=== PATIENT | male | born 1950 | race Caucasian/White ===

== ENCOUNTER 2019-10-17 15:41 | Observation (INO) ==
[2019-10-17] MEDS ORDERED: ONDANSETRON INJ 2 MG/ML 2 ML VIAL IV STA (16:37)
[2019-10-17] MEDS ORDERED: MoRPHine SULFATE 4 MG/ML 1 ML CARP\\VIAL IV STA (16:37)
--- NOTE | 2019-10-17 16:40 | Emergency Department Note ---
Impression & Plan Pulmonary embolism, Deep vein thrombosis (DVT) of left lower extremity ED Provider Note NAME: MAYE ARCE AGE: 69 SEX: M : 1950 ARRIVES VIA: Walk-In INFORMANT: Patient ED PROVIDER(S): Dioni Trejo DO CHIEF COMPLAINT: Extensive left lower extremity clot HPI: Patient is a 69-year-old male who presents the ER for swelling in his left lower extremity which he noticed Sunday. He notes in retrospect about 2 months ago resource manager recommended him applying some compression stockings and she noted some swelling. He went for 4-hour bike ride on Sunday on his motorcycle. Swelling significantly worsened. Since then patient has been having pain in the left calf. Describes as a sharp stabbing. 10 out of 10. Worse with movement. Denies any chest pain or shortness of breath. No nausea vomiting or diarrhea. No other exacerbating or remitting factors. He notes that his leg does feel so tight as though he cannot move it. He denies any weakness though. ROS: See above HPI for pertinent positives & negatives. A total of 10 systems reviewed and were otherwise negative. PAST MEDICAL HISTORY:See Below PAST SURGICAL HISTORY:See Below FAMILY HISTORY:See Below SOCIAL HISTORY:See Below HOME MEDICATIONS:See Below ALLERGIES:See Below VITALS:See Below PHYSICAL EXAMINATION: GENERAL: Sitting up in bed, alert, well appearing, well nourished, no distress, non-toxic EYE EXAM: normal conjunctiva. OROPHARYNX: no exudate, no erythema, lips, buccal mucosa, and tongue normal and mucous membranes are moist NECK: supple, no nuchal rigidity, no adenopathy, non-tender LUNGS: Clear to auscultation. Normal chest wall mechanics HEART: no murmurs, S1 normal and S2 normal ABDOMEN: abdomen soft, non-tender, normo-active bowel sounds, no masses, no rebound or guarding. SKIN: no rashes and no bruising UPPER EXTREMITIES: upper extremities are grossly normal. LOWER EXTREMITIES: No pitting edema. Left calf significantly larger than right. Left thigh larger than right. DP 2 out of 4. Mild pitting edema. Good sensation intact. NEURO EXAM: Normal sensorium, cranial nerves II-XII grossly intact, normal speech, no gross weakness of arms, no gross weakness of legs. MEDICAL DECISION MAKING: Patient is a 69-year-old male who presents the ER for DVT in his left lower extremity which is fairly extensive. I reviewed the results. Pulse ox was 91 to 92%. He denied any chest pain or shortness of breath. Recommended CT angios which she was agreeable to. IV was established blood work was obtained. Labs show a mild leukocytosis of 10,000. No significant anemia. INR unremarkable. BMP along with LFTs bilirubin and troponin was negative. Lipase was unremarkable. CT [place] of the chest shows extensive bilateral PEs. Discussed bleeding risk factors with the patient. He did recently just have a cataract surgery was. Discussed with Dr. Rae from ophthalmology. He notes that anticoagulation is okay at this point. He was given a bolus of heparin and a drip of heparin. He was admitted to the hospital. Triage Nursing notes reviewed. Prior medical records reviewed Vital Signs: reviewed and remarkable for hypertensive Differential diagnosis: DVT, musculoskeletal, infection, joint effusion, trauma, lymphedema, idiopathic, CHF, as well as other pathologies. ER treatment provided: See below Diagnostics interpreted by me: ECG: Sinus rhythm 88 normal axis No PVCs T wave flattening in aVL Normal QTC Cardiac Monitoring: An order was placed for continuous cardiac monitoring. The monitor shows a rate of 85 with sinus rhythm. Laboratory studies: As stated above and show below. Imaging studies: CT of the chest shows extensive bilateral PEs. Consultation(s): Discussed with the hospitalist for admission Discussed with ophthalmology Dr. Rae in regards to anticoagulation with recent cataract surgery. ED COURSE: Procedures: none Critical Care: I have personally spent 45 minutes of critical care time in the direct managem ent of this patient. This includes bedside care, interpretation of diagnostic studies, and testing, discussion with consultants, patient, and family members, and other required patient management activities. This 45 minutes is in excess of all separately billable procedures. Past Med/Surg History Medical History (Updated 10/17/19 @ 23:04 by Dioni Trejo DO) H/O: HTN (hypertension) Surgical History (Updated 10/17/19 @ 19:45 by Mikey Cook MD) H/O umbilical hernia repair S/P cataract surgery Family History (Updated 10/17/19 @ 19:44 by Mikey Cook MD) Father Cancer prostate Social History (Updated 10/17/19 @ 19:45 by Mikey Cook MD) Smoking Status: Never smoker Smoking End Date: Quit smoking in 1974; Hx Alcohol Use: Yes Alcohol type: beer Hx Substance Use: No Preferred Language: [place] Communication Ability: Effective Podopediatrician Required: No Beliefs That Will Affect Care: None marital status: Current Living Situation: Spouse Feels Safe at Home: Yes Safety Concerns: Feels Safe At This Time Allergies Allergies Allergy/AdvReac Type Severity Reaction Status Date / Time No Known Allergies Allergy Unverified 10/17/19 17:19 Home Meds Home Medications Medication Instructions Recorded Confirmed zwwuzhw-imjbpttoofwut-zxanjgfk 2 tab PO Q8 PRN 10/17/19 10/17/19 [Excedrin Extra Strength] fluocinonide 1 applic TOPICAL BID 10/17/19 10/17/19 indomethacin 25 mg PO UD PRN 10/17/19 10/17/19 ofloxacin [Ocuflox] 1 drp OPR QID 10/17/19 10/17/19 prednisolone acetate [Pred Forte] 1 drp OPR QID 10/17/19 10/17/19 valsartan-hydrochlorothiazide 1 tab PO DAILY 10/17/19 10/17/19 [Diovan HCT] Results & Data (ED) Vital Signs Vital Signs - 24 hr 10/17/19 15:45 10/17/19 16:57 10/17/19 16:59 Temperature 37.4 C Temperature Source Oral Pulse Rate 66 Pulse Rate [Apical] 89 Pulse Rate from SpO2 Sensor Pulse Rhythm [Apical] Regular Pulse Strength [Apical] Normal Respiratory Rate 18 18 Respiratory Effort / Characteristics Non-Labored Spontaneous Respiratory Depth Normal Respiratory Pattern Regular Blood Pressure 151/88 H Blood Pressure [Right Arm] 145/81 H Blood Pressure Mean 109 Blood Pressure Mean [Right Arm] 102 Blood Pressure Position [Right Arm] Sitting Pulse Oximetry 92 100 100 Oxygen Delivery Method Room Air Room Air Room Air Sepsis Recent Fever Within 48 Hours No Sepsis New/Unexplained Change in Mental Status No Sepsis Action Taken by Nursing No Action Required 10/17/19 17:00 10/17/19 17:30 10/17/19 18:00 Temperature Temperature Source Pulse Rate 81 83 79 Pulse Rate [Apical] Pulse Rate from SpO2 Sensor 78 Pulse Rhythm [Apical] Pulse Strength [Apical] Respiratory Rate 24 19 19 Respiratory Effort / Characteristics Respiratory Depth Respiratory Pattern Blood Pressure 138/80 156/89 H 148/83 H Blood Pressure [Right Arm] Blood Pressure Mean 96 97 108 Blood Pressure Mean [Right Arm] Blood Pressure Position [Right Arm] Pulse Oximetry 99 99 Oxygen Delivery Method Room Air Room Air Sepsis Recent Fever Within 48 Hours Sepsis New/Unexplained Change in Mental Status Sepsis Action Taken by Nursing 10/17/19 18:30 10/17/19 19:00 Temperature Temperature Source Pulse Rate 76 75 Pulse Rate [Apical] Pulse Rate from SpO2 Sensor 77 76 Pulse Rhythm [Apical] Pulse Strength [Apical] Respiratory Rate 16 22 Respiratory Effort / Characteristics Respiratory Depth Respiratory Pattern Blood Pressure 151/89 H 164/94 H Blood Pressure [Right Arm] Blood Pressure Mean 116 109 Blood Pressure Mean [Right Arm] Blood Pressure Position [Right Arm] Pulse Oximetry 96 99 Oxygen Delivery Method Room Air Sepsis Recent Fever Within 48 Hours Sepsis New/Unexplained Change in Mental Status Sepsis Action Taken by Nursing Laboratory Data Result diagrams: 10/17/19 16:50 10/17/19 16:50 Lab Results 10/17/19 10/17/19 10/17/19 Range/Units 16:50 16:50 16:50 WBC 10.86 H (4.8-10.8) K/uL RBC 4.87 (4.7-6.1) M/uL Hgb 15.2 (14.0-18.0) g/dL Hct 43.7 (42-52) % MCV 89.7 (80-100) fL MCH 31.2 (25-34) pg MCHC 34.8 (32-36) g/dL RDW Std Deviation 43.1 (36.4-46.3) fL RDW Coeff of [place] 13.1 (11.5-14.5) % Plt Count 225 (130-400) K/uL MPV 9.8 (7.4-10.4) fL Immature Gran % (Auto) 0.2 % Neut % (Auto) 78.3 % Lymph % (Auto) 7.6 % [place] % (Auto) 13.0 % Eos % (Auto) 0.8 % Baso % (Auto) 0.1 % Neut # (Auto) 8.51 H (1.4-6.5) K/uL Lymph # (Auto) 0.82 L (1.2-3.4) K/uL [place] # (Auto) 1.41 H (0.11-0.59) K/uL Eos # (Auto) 0.09 (0-0.5) K/uL Baso # (Auto) 0.01 (0-0.2) K/uL Immature Gran # (Auto) 0.02 (0.00-0.02) K/uL PT 11.3 (9.0-12.0) Seconds INR 1.1 (0.9-1.1) APTT 28.2 (21.0-31.0) Seconds PTT Ratio 1.0 Sodium 139 (136-145) mmol/L Potassium 4.0 (3.5-5.1) mmol/L Chloride 107 (98-107) mmol/L Carbon Dioxide 28 (21-32) mmol/L Anion Gap 4.0 (3-11) BUN 25 H (7-18) mg/dl Creatinine 1.10 (0.6-1.4) mg/dl Est Cr Clr Drug Dosing 85.9 ml/min Est GFR ( Amer) 78.4 Est GFR (Non-Af Amer) 67.7 BUN/Creatinine Ratio 22.6 H (10-20) Glucose 124 H (70-99) mg/dl Calcium 9.0 (8.5-10.1) mg/dl Total Bilirubin 1.6 H (0.2-1) mg/dl AST 63 H (15-37) U/L ALT 70 (12-78) U/L Alkaline Phosphatase 108 (45-117) U/L Troponin I < 0.015 (0-0.045) ng/ml Total Protein 8.1 (6.4-8.2) gm/dl Albumin 3.3 L (3.4-5.0) gm/dl Globulin 4.8 H (2.5-4.0) gm/dl Albumin/Globulin Ratio 0.7 L (0.9-2) Lipase 74 (73-393) U/L Administered Medications Acetaminophen (Tylenol) 650 mg PO Q4H PRN PRN Reason: Pain or Fever Stop: 11/16/19 19:09 Last Admin: 10/17/19 21:06 Dose: 650 mg Documented by: [id number] Heparin Sodium/Dextrose (Heparin Sodium/Dextrose) 25,000 units in 500 mls @ 35 mls/hr IV .[id number] [facility]; Protocol Stop: 11/16/19 18:14 Last Titration: 07/31/20 21:07 Dose: 1,750 units/hr, 35 mls/hr Documented by: [id number] Cosigned by: [id number] Admin: 10/17/19 19:23 Dose: 1,750 units/hr, 35 mls/hr Documented by: [id number] Cosigned by: [id number] Ofloxacin (Ocuflox 0.3%) 1 drops OPR QID JONELLE Stop: 10/27/19 20:59 Last Admin: 10/17/19 21:14 Dose: 1 drops Documented by: [id number] Prednisolone Acetate (Pred Forte 1%) 1 drops OPR QID JONELLE Stop: 11/16/19 20:59 Last Admin: 10/17/19 21:14 Dose: 1 drops Documented by: [id number] Discontinued Medications Heparin Sodium (Porcine) (Heparin Iv Bolus) Confirm Administered Dose 10,000 units .ROUTE .STK-MED ONE Stop: 10/17/19 19:01 Last Admin: 10/17/19 19:24 Dose: 5,000 units Documented by: [id number] Cosigned by: [id number] Heparin Sodium/Dextrose () 1 ea IV NOW STA; Protocol Stop: 10/17/19 18:05 Last Admin: 10/17/19 19:25 Dose: Not Given Documented by: [id number] Ioversol (Optiray 320 125ml) 119 ml IV ONCE ONE Stop: 10/17/19 17:53 Last Admin: 10/17/19 17:52 Dose: 119 ml Documented by: [id number] Morphine Sulfate (Morphine Sulfate) 4 mg IV NOW STA Stop: 10/17/19 16:38 Last Admin: 10/17/19 19:25 Dose: Not Given Documented by: [id number] Morphine Sulfate (Morphine Sulfate) 2 mg IV Q30M PRN PRN Reason: Chest Pain Stop: 10/31/19 19:09 Last Admin: 10/17/19 21:14 Dose: 2 mg Documented by: [id number] Ondansetron HCl (Zofran) 4 mg IV NOW STA Stop: 10/17/19 16:38 Last Admin: 10/17/19 19:25 Dose: Not Given Documented by: [id number] Discharge Plan Visit Data *Final* Discharge Date/Time: 10/17/19 20:03 Chief Complaint: Leg Injury/Pain Stated Complaint: DVT IN LEFT LEG ED Provider: Dioni Trejo Discharge Problem: Pulmonary embolism, Deep vein thrombosis (DVT) of left lower extremity Patient Disposition: Admitted As Inpatient Discharge Instructions Interventions: ED Discharge Assessment Last Done: 10/17/19 20:03 Discharge Problem: Pulmonary embolism Qualifiers: Pulmonary embolism type: unspecified Chronicity: acute Acute cor pulmonale presence: unspecified Qualified Code(s): I26.99 - Other pulmonary embolism without acute cor pulmonale Deep vein thrombosis (DVT) of left lower extremity Qualifiers: Affected thrombotic vein of extremity: unspecified vein of extremity Chronicity: acute Qualified Code(s): I82.402 - Acute embolism and thrombosis of unspecified deep veins of left lower extremity
--- NOTE | 2019-10-17 16:56 | XRay Report ---
XR chest 1V portable CLINICAL HISTORY: Atypical chest pain COMPARISON STUDY: No previous studies for comparison. FINDINGS: The heart is at the upper limits of normal in size. There is no failure. There is no focal pulmonary consolidation. There are no pleural effusions.[ IMPRESSION: No active disease in the chest. ACT 112: Negative or not required by law. Electronically signed by: Nicola Arenas M.D. 10/17/2019 4:54 PM
[2019-10-17 17:03] LABS: Basophils # (auto) 0.01 K/uL (0-0.2); Basophils % (auto) 0.1 %; Eosinophils # (auto) 0.09 K/uL (0-0.5); Eosinophils % (auto) 0.8 %; Hematocrit (blood only) 43.7 % (42-52); Hemoglobin 15.2 g/dL (14.0-18.0); Immature Granulocytes # (auto) 0.02 K/uL (0.00-0.02); Immature Granulocytes % (auto) 0.2 %; Lymphocytes # (auto) 0.82 K/uL (1.2-3.4); Lymphocytes % (auto) 7.6 %; Mean Corpuscular Hemoglobin 31.2 pg (25-34); Mean Corpuscular Hgb Conc 34.8 g/dL (32-36); Mean Corpuscular Volume 89.7 fL (80-100); Mean Platelet Volume 9.8 fL (7.4-10.4); Monocytes # (auto) 1.41 K/uL (0.11-0.59); Neutrophils # (auto) 8.51 K/uL (1.4-6.5); Neutrophils % (auto) 78.3 %; Platelet Count 225 K/uL (130-400); RDW Coefficient of Variation 13.1 % (11.5-14.5); RDW Standard Deviation 43.1 fL (36.4-46.3); Red Blood Count 4.87 M/uL (4.7-6.1); White Blood Count 10.86 K/uL (4.8-10.8)
[2019-10-17 17:15] LABS: INR 1.1 (0.9-1.1); Partial Thromboplastin Time 28.2 Seconds (21.0-31.0); Prothrombin Time 11.3 Seconds (9.0-12.0)
[2019-10-17 17:26] LABS: Alanine Aminotransferase 70 U/L (12-78); Albumin Level 3.3 gm/dl (3.4-5.0); Aspartate Aminotransferase 63 U/L (15-37); BUN Creatinine Ratio 22.6 (10-20); Blood Urea Nitrogen 25 mg/dl (7-18); Carbon Dioxide 28 mmol/L (21-32); Chloride 107 mmol/L (98-107); Creatinine Clr Calc Pharmacy 85.9 ml/min; Est GFR (African American) 78.4; Est GFR (Non-African American) 67.7; Glucose 124 mg/dl (70-99); Lipase 74 U/L (73-393); Sodium 139 mmol/L (136-145)
[2019-10-17 17:31] LABS: Albumin Globulin Ratio 0.7 (0.9-2); Alkaline Phosphatase 108 U/L (45-117); Bilirubin,Total 1.6 mg/dl (0.2-1); Globulin 4.8 gm/dl (2.5-4.0); Total Protein 8.1 gm/dl (6.4-8.2); Troponin I < 0.015 ng/ml (0-0.045)
[2019-10-17] MEDS ORDERED: OPTIRAY 320 125ml IV ONE (17:52)
--- NOTE | 2019-10-17 18:00 | CT Scan Report ---
CT ANGIOGRAM OF THE CHEST CLINICAL HISTORY: Chest pain and DVT. Possible pulmonary embolism. Hypoxia. COMPARISON STUDY: Chest x-ray dated 10/17/2019 TECHNIQUE: Following the IV administration of 119 mL of Optiray-320, CT angiogram of the thorax was p erformed from the thoracic inlet to the lung bases utilizing the pulmonary embolus protocol. Images a re reviewed in the axial, sagittal, and coronal planes. IV contrast was administered without complica tion. MIP imaging was performed. A dose lowering technique was utilized adhering to the principles o f ALARA. There is mild hepatic steatosis. CT DOSE: 771.07 mGy.cm FINDINGS: No pathologically enlarged axillary mediastinal or hilar lymph nodes were visualized. There was no evidence of thoracic aortic dilatation. There are right upper lobe and right lower lobe pulmonary artery filling defects indicative of acute pulmonary embolism. There is slight flattening of the interventricular septum. Mild right ventricular strain cannot be excluded No pleural effusions are visualized. There is no focal pulmonary consolidation. IMPRESSION: 1. Moderate right lung pulmonary artery filling defects indicative of acute pulmonary embolism 2. Slight flattening of the interventricular septum. Mild right ventricular strain cannot be excluded 3. Hepatic steatosis ACT 112: Negative or not required by law. Electronically signed by: Nicola Arenas M.D. 10/17/2019 5:59 PM
[2019-10-17] MEDS ORDERED: HEPARIN SOD (PORCINE) 1000 UNIT/ML 10 ML VIAL ONE (19:00)
[2019-10-17] MEDS ORDERED: MoRPHine SULFATE 2 MG/ML CARP IV PRN ×2 (19:10→21:41)
[2019-10-17] MEDS ORDERED: POLYETHYLENE (MIRALAX) 17 GM PACK PO PRN (19:10)
[2019-10-17] MEDS ORDERED: ACETAMINOPHEN 325 MG TAB PO PRN (19:10)
[2019-10-17] MEDS: HEPARIN SODIUM/DEXTROSE 25,000 UNITS/500 ML BAG IV SCH (19:23)
--- NOTE | 2019-10-17 19:31 | History & Physical Report ---
Date of Service October 17, 2019 Assessment & Plan (1) Pulmonary embolism: (2) Deep vein thrombosis (DVT) of left lower extremity: -admit to telemetry and closely monitor vitals -Mild right ventricular strain cannot be excluded -ED provider confirmed with opthalmologist, that it was okay to start IV heparin (status post cataract surgery on Sunday) -IV heparin ordered in ED, cont. likely for next 48 hrs -Before discharge plan for p.o. anticoagulant, Coumadin or NOACs, given his normal renal function and BMI of 32, can consider NOAC -Hypercoagulable labs ordered even though does not seem likely to be due to genetic disorder (3) H/O: HTN (hypertension): Patient have history of hypertension, did not use his diuretic for past 3 days, will continue to hold -Continue monitor vitals closely Status post right eye cataract surgery -Continue eyedrops, ofloxacin, prednisolone, 4 times daily CODE STATUS: FULL Dispo: likely home when medically stable History of Present Illness Chief Complaint: Left lower extremity swelling and pain, left lower extremity DVT, PE Primary Care Provider: Phillip Singleton MD Mr. Vences is a 69-year-old male with history of hypertension, and recent cataract surgery, who has been having lower extremity edema due to venous insufficiency for some time, however since Sunday his left lower extremity became significantly more swollen and painful. Patient was on a long motorcycle ride, for several hours, and when he came back home, he noticed left lower extremity was significantly swollen and painful. Patient is only on diuretic for his high blood pressure, however has not been taking it for couple of days now because his blood pressures been on the lower side at home. He also confirms that he has not been drinking much fluids and being outside in hot weather. He went to see his primary care doctor today, who ordered left lower extremity Doppler. Says that came positive for significant left lower extremity DVT, he was advised to present himself to the emergency room. In ED, CT was performed, and showed right pulmonary embolism. Patient never had any shortness of breath, dizziness, chest pain, lightheadedness. He only complains of pain with walking. He does not have any other history of previous DVTs or PEs denies any history of clotting issues within his family. As far as he knows, he has no prior history of cancer, and he has been compliant with his regular cancer screenings. He states that he was actually supposed to have screening colonoscopy on Sunday, which he has to cancel now. Patient also had cataract surgery on Sunday, of his right eye, and currently is on eyedrops, ofloxacin and prednisolone. He is supposed to use these 4 times a day. Patient's is currently at the bedside, and has his eyedrops present at the bedside. Allergies Allergy/AdvReac Type Severity Reaction Status Date / Time No Known Allergies Allergy Unverified 10/17/19 17:19 Home Medications Home Medications Medication Instructions Recorded Confirmed Type zjhdpkt-oyqqirpxnftrr-umskwcrb 2 tab PO Q8 PRN 10/17/19 10/17/19 History [Excedrin Extra Strength] fluocinonide 1 applic TOPICAL BID 10/17/19 10/17/19 History indomethacin 25 mg PO UD PRN 10/17/19 10/17/19 History ofloxacin [Ocuflox] 1 drp OPR QID 10/17/19 10/17/19 History prednisolone acetate [Pred Forte] 1 drp OPR QID 10/17/19 10/17/19 History valsartan-hydrochlorothiazide 1 tab PO DAILY 10/17/19 10/17/19 History [Diovan HCT] Past Med/Surg History Medical History (Updated 10/17/19 @ 19:34 by Mikey Cook MD) H/O: HTN (hypertension) Surgical History (Updated 10/17/19 @ 19:45 by Mikey Cook MD) H/O umbilical hernia repair S/P cataract surgery Family History (Updated 10/17/19 @ 19:44 by Mikey Cook MD) Father Cancer prostate Social History (Updated 10/17/19 @ 19:45 by Mikey Cook MD) Smoking Status: Former smoker Smoking End Date: Quit smoking in 1974; Hx Alcohol Use: Yes (2-4 times a month) marital status: Feels Safe at Home: Yes Review of Systems Review of Systems: All systems reviewed & are unremarkable except as noted in HPI & below Constitutional: no fever and no chills Eyes: Mild right eye pain, status post recent cataract surgery Ear, Nose, Mouth, Throat: no problem reported Respiratory: no cough, no dyspnea and no pain on inspiration Cardiovascular: + edema (LLE) and + calf pain (LLE); no chest pain and no palpitations Gastrointestinal: no abdominal pain, no nausea and no vomiting Genitourinary: no problem reported Musculoskeletal: LLE pain, and edema Integumentary: no problem reported Neurologic: no problem reported Psychiatric: no problem reported Endocrine: no problem reported Hematologic / Lymphatic: no problem reported Allergy / Immunological: no problem reported Physical Exam Physical Exam: Elderly male laying in bed, in no acute distress Constitutional: WD/WN, vitals as above no acute distress Eyes: Mild right conjunctivitis, status post recent cataract surgery, otherwise no other abnormality ENMT: external ear and nose normal, oropharynx normal Neck: trachea midline, no thyromegaly Respiratory: normal respiratory effort, lungs clear to auscultation no cough Auscultation: no crackles, no rhonchi and no wheezes Cardiovascular: RRR, no murmur, no edema Chest (Breasts): Chest: normal inspection of chest Gastrointestinal (Abdomen): Inspection/Auscultation: abdomen normal to inspection and normal bowel sounds; abdomen not distended Percussion/P alpation: abdomen soft; abdomen nontender, no guarding and abdomen not rigid Musculoskeletal: Head/Neck/Chest: normocephalic, head atraumatic and neck supple Left lower extremity edema and pain with movement or palpation Skin: no rashes, warm and dry no lesions Neurologic: PERRL, EOMI, accommodation nl, no face palsy, no dysarthria moves all extremities Speech / Cognition: normal speech Motor/Sensory: no tremor Psychiatric: A+Ox3, euthymic affect Genitourinary: Deferred Lymphatic: no lymphadenopathy Results & Data Results & Data ([facility]) Vital Signs (Past 12 Hours) Vital Signs Temp Pulse Pulse Resp BP BP Pulse Ox 10/17/19 18:30 76 16 151/89 H 96 10/17/19 18:00 79 19 148/83 H 99 10/17/19 17:30 83 19 156/89 H 10/17/19 17:00 81 24 138/80 99 10/17/19 16:59 100 10/17/19 16:57 89 18 145/81 H 100 10/17/19 15:45 37.4 C 66 18 151/88 H 92 Laboratory Results 10/17/19 10/17/19 10/17/19 Range/Units 16:50 16:50 16:50 WBC 10.86 H (4.8-10.8) K/uL RBC 4.87 (4.7-6.1) M/uL Hgb 15.2 (14.0-18.0) g/dL Hct 43.7 (42-52) % MCV 89.7 (80-100) fL MCH 31.2 (25-34) pg MCHC 34.8 (32-36) g/dL RDW Std Deviation 43.1 (36.4-46.3) fL RDW Coeff of [place] 13.1 (11.5-14.5) % Plt Count 225 (130-400) K/uL MPV 9.8 (7.4-10.4) fL Immature Gran % (Auto) 0.2 % Neut % (Auto) 78.3 % Lymph % (Auto) 7.6 % [place] % (Auto) 13.0 % Eos % (Auto) 0.8 % Baso % (Auto) 0.1 % Neut # (Auto) 8.51 H (1.4-6.5) K/uL Lymph # (Auto) 0.82 L (1.2-3.4) K/uL [place] # (Auto) 1.41 H (0.11-0.59) K/uL Eos # (Auto) 0.09 (0-0.5) K/uL Baso # (Auto) 0.01 (0-0.2) K/uL Immature Gran # (Auto) 0.02 (0.00-0.02) K/uL PT 11.3 (9.0-12.0) Seconds INR 1.1 (0.9-1.1) APTT 28.2 (21.0-31.0) Seconds PTT Ratio 1.0 Sodium 139 (136-145) mmol/L Potassium 4.0 (3.5-5.1) mmol/L Chloride 107 (98-107) mmol/L Carbon Dioxide 28 (21-32) mmol/L Anion Gap 4.0 (3-11) BUN 25 H (7-18) mg/dl Creatinine 1.10 (0.6-1.4) mg/dl Est Cr Clr Drug Dosing 85.9 ml/min Est GFR ( Amer) 78.4 Est GFR (Non-Af Amer) 67.7 BUN/Creatinine Ratio 22.6 H (10-20) Glucose 124 H (70-99) mg/dl Calcium 9.0 (8.5-10.1) mg/dl Total Bilirubin 1.6 H (0.2-1) mg/dl AST 63 H (15-37) U/L ALT 70 (12-78) U/L Alkaline Phosphatase 108 (45-117) U/L Troponin I < 0.015 (0-0.045) ng/ml Total Protein 8.1 (6.4-8.2) gm/dl Albumin 3.3 L (3.4-5.0) gm/dl Globulin 4.8 H (2.5-4.0) gm/dl Albumin/Globulin Ratio 0.7 L (0.9-2) Lipase 74 (73-393) U/L Diagnostic Findings Chest CTA IMPRESSION: 1. Moderate right lung pulmonary artery filling defects indicative of acute pulmonary embolism 2. Slight flattening of the interventricular septum. Mild right ventricular strain cannot be excluded 3. Hepatic steatosis LLE Doppler IMPRESSION: Extensive acute left lower extremity DVT extending from the common femoral vein to below the knee.
[2019-10-17] MEDS: prednisoLONE acetate 1% OP SUSP 5 ML BTL OPR SCH (21:14)
[2019-10-17] MEDS: OFLOXACIN 0.3% OP SOLN 5 ML BTL OPR SCH (21:14)
[2019-10-18 01:28] LABS: Partial Thromboplastin Ratio 1.5; Partial Thromboplastin Time 41.8 Seconds (21.0-31.0)
[2019-10-18] MEDS ORDERED: HEPARIN IV BOLUS 4,000 UNITS in SYRINGE 0 ML IV ONE (02:30)
[2019-10-18] MEDS: OFLOXACIN 0.3% OP SOLN 5 ML BTL OPR SCH ×4 (07:20→20:37)
[2019-10-18] MEDS: prednisoLONE acetate 1% OP SUSP 5 ML BTL OPR SCH ×4 (07:20→20:37)
--- NOTE | 2019-10-18 07:24 | Electrocardiogram Report ---
Test Reason : Blood Pressure : / mmHG Vent. Rate : 088 BPM Atrial Rate : 088 BPM P-R Int : 164 ms QRS Dur : 104 ms QT Int : 374 ms P-R-T Axes : 046 -16 033 degrees QTc Int : 452 ms Normal sinus rhythm Normal ECG No previous ECGs available Confirmed by Christ Kwong ([id number]) on 10/18/2019 7:23:39 AM Referred By: REFERRED SELF Confirmed By:Christ Kwong
[2019-10-18] MEDS: HEPARIN SODIUM/DEXTROSE 25,000 UNITS/500 ML BAG IV SCH ×2 (08:57→21:59)
[2019-10-18 09:37] LABS: Partial Thromboplastin Ratio 1.8
--- NOTE | 2019-10-18 14:39 | Hospitalist Progress Note ---
Date of Service October 18, 2019 Assessment & Plan (1) Pulmonary embolism: (2) Deep vein thrombosis (DVT) of left lower extremity: Was advised to go to the ER after doppler of LLE showed Outpatient doppler showed DVT in left lower extremity CTA chest showed moderate right lung pulmonary artery filling defects indicative of acute pulmonary embolism ED provider confirmed with carpenter supervisor, that it was okay to start IV heparin (status post cataract surgery on Sunday) Continue IV heparin drip Anticoagulant discussed with patient about warfarin and NOAC Major risks discussed with patient while on anticoagulant such as abnormal bleeding (hematuria and blood in stools) Pt is interested in the DOACs. I spoke to the pharmacist it will cost $47/month for the Eliquis If too expensive for the DOACs, pt will choose the warfarin Will get an ECHO to r/o RV strain Stable (3) H/O: HTN (hypertension): Patient have history of hypertension, did not use his diuretic in the last few days Will consider to resume his BP med Continue monitor BP Status post right eye cataract surgery Continue eyedrops, ofloxacin, prednisolone, 4 times daily CODE STATUS: FULL Dispo: Possible discharge home tomorrow Admission and Anticipated Discharge Date Admission Date: October 17, 2019 Subjective Pt was seen and examined Lying in bed with no distress Pt said that he feels fine He said that his LLE continues to be tender Denies any chest pain, palpitation, dizziness and SOB Physical Exam Physical Exam: General- No acute distress Head- atraumatic Eyes- PERRL, EOMI, ENT- oropharynx clear Neck- supple, no JVD Lungs- clear to auscultation Heart- regular rhythm; no murmur Abdomen- normal bowel sounds, soft, nontender Extremities- no calf tenderness, +LLE tenderness and +edema Neuro- alert, oriented x 3; PERRL, EOMI; no facial palsy; no dysarthria Skin- warm & dry Results & Data Results & Data ([facility]) Vital Signs (Past 12 Hours) Vital Signs Temp Pulse Resp BP Pulse Ox 10/18/19 11:45 36.8 C 91 H 18 159/81 H 95 10/18/19 07:58 37.3 C 72 18 157/87 H 97 10/18/19 04:00 36.5 C 80 18 149/94 H 98 (1) Deep vein thrombosis (DVT) of left lower extremity Affected thrombotic vein of extremity: unspecified vein of extremity Chronicity: acute Qualified Code(s): I82.402 - Acute embolism and thrombosis of unspecified deep veins of left lower extremity (2) Pulmonary embolism Acute cor pulmonale presence: unspecified Chronicity: acute Pulmonary embolism type: unspecified Qualified Code(s): I26.99 - Other pulmonary embolism without acute cor pulmonale
[2019-10-19 06:28] LABS: Partial Thromboplastin Ratio 1.6; Partial Thromboplastin Time 44.7 Seconds (21.0-31.0)
[2019-10-19] MEDS ORDERED: HEPARIN IV BOLUS 4,000 UNITS in SYRINGE 0 ML IV ONE (06:50)
[2019-10-19] MEDS: OFLOXACIN 0.3% OP SOLN 5 ML BTL OPR SCH ×2 (07:03→11:58)
[2019-10-19] MEDS: prednisoLONE acetate 1% OP SUSP 5 ML BTL OPR SCH ×2 (07:04→11:58)
[2019-10-19] MEDS ORDERED: VALSARTAN 80 MG TAB PO SCH (09:30)
[2019-10-19] MEDS ORDERED: hydroCHLOROthiazide 25 MG TAB PO SCH (09:30)
[2019-10-19] MEDS ORDERED: APIXABAN 5 MG TABLET PO SCH (10:00)
[2019-10-19] MEDS: HEPARIN SODIUM/DEXTROSE 25,000 UNITS/500 ML BAG IV SCH (10:37)
[2019-10-19 13:07] LABS: Partial Thromboplastin Ratio 1.9
--- NOTE | 2019-10-19 13:18 | Hospitalist Progress Note ---
Date of Service October 19, 2019 Assessment & Plan (1) Pulmonary embolism: (2) Deep vein thrombosis (DVT) of left lower extremity: Was advised to go to the ER after doppler of LLE showed Outpatient doppler showed DVT in left lower extremity CTA chest showed moderate right lung pulmonary artery filling defects indicative of acute pulmonary embolism ED provider confirmed with candy cooker helper, that it was okay to start IV heparin (status post cataract surgery on Sunday) Starting on IV heparin drip on admission Anticoagulant discussed with patient about warfarin and NOAC Major risks discussed with patient while on anticoagulant such as abnormal bleeding (hematuria and blood in stools) Pt is interested in the DOACs. I spoke to the pharmacist it will cost $47/month for the Eliquis If too expensive for the DOACs, pt will choose the warfarin Pt said that he would be able to afford the $47 for the eliquis IV heparin drip was discontinued and transition to Eliquis 10mg BID for 7 days, then 5mg BID Hypercoagulable work up pending Echo showed normal left ventricular wall motion and thickness. Left ventricular wall motion is normal. Ejection fraction 60 to 65%. No RV strain documented on ECHO report. Stable (3) H/O: HTN (hypertension): Patient have history of hypertension, did not use his diuretic in the last few days Resume his BP med Continue monitor BP Status post right eye cataract surgery Continue eyedrops, ofloxacin, prednisolone, 4 times daily CODE STATUS: FULL Disposition Possible discharge home today Admission and Anticipated Discharge Date Admission Date: October 17, 2019 Subjective Pt was seen and examined Lying in bed with no distress Pt said that he feels OK He said that he does have some pain in his LLE He said that he did not sleep well last night due to the noise Denies any SOB, palpitation, dizziness and chest pain Physical Exam Physical Exam: General- No acute distress Head- atraumatic Eyes- PERRL, EOMI, ENT- oropharynx clear Neck- supple, no JVD Lungs- clear to auscultation Heart- regular rhythm; no murmur Abdomen- normal bowel sounds, soft, nontender Extremities- no calf tenderness, +LLE tenderness and +edema Neuro- alert, oriented x 3; PERRL, EOMI; no facial palsy; no dysarthria Skin- warm & dry Results & Data Results & Data ([facility]) Vital Signs (Past 12 Hours) Vital Signs Temp Pulse Resp BP Pulse Ox 10/19/19 07:51 37.0 C 80 18 153/81 H 97 10/19/19 04:13 37.0 C 73 18 149/83 H 97 (1) Deep vein thrombosis (DVT) of left lower extremity Affected thrombotic vein of extremity: unspecified vein of extremity Chronicity: acute Qualified Code(s): I82.402 - Acute embolism and thrombosis of unspecified deep veins of left lower extremity (2) Pulmonary embolism Acute cor pulmonale presence: unspecified Chronicity: acute Pulmonary embolism type: unspecified Qualified Code(s): I26.99 - Other pulmonary embolism without acute cor pulmonale
[2019-10-19 13:25] LABS: Partial Thromboplastin Time 53.4 Seconds (21.0-31.0)
--- NOTE | 2019-10-20 08:55 | Discharge Summary ---
Date of Service October 19, 2019 Admission HPI Per Admitting Provider Mr. Vences is a 69-year-old male with history of hypertension, and recent cataract surgery, who has been having lower extremity edema due to venous insufficiency for some time, however since Sunday his left lower extremity became significantly more swollen and painful. Patient was on a long motorcycle ride, for several hours, and when he came back home, he noticed left lower extremity was significantly swollen and painful. Patient is only on diuretic for his high blood pressure, however has not been taking it for couple of days now because his blood pressures been on the lower side at home. He also confirms that he has not been drinking much fluids and being outside in hot weather. He went to see his primary care doctor today, who ordered left lower extremity Doppler. Says that came positive for significant left lower extremity DVT, he was advised to present himself to the emergency room. In ED, CT was performed, and showed right pulmonary embolism. Patient never had any shortness of breath, dizziness, chest pain, lightheadedness. He only complains of pain with walking. He does not have any other history of previous DVTs or PEs denies any history of clotting issues within his family. As far as he knows, he has no prior history of cancer, and he has been compliant with his regular cancer screenings. He states that he was actually supposed to have screening colonoscopy on Sunday, which he has to cancel now. Patient also had cataract surgery on Sunday, of his right eye, and currently is on eyedrops, ofloxacin and prednisolone. He is supposed to use these 4 times a day. Patient's is currently at the bedside, and has his eyedrops present at the bedside. Admission Exam Per Admitting Provider Physical Exam: Elderly male laying in bed, in no acute distress Constitutional: WD/WN, vitals as above no acute distress Eyes: Mild right conjunctivitis, status post recent cataract surgery, otherwise no other abnormality ENMT: external ear and nose normal, oropharynx normal Neck: trachea midline, no thyromegaly Respiratory: normal respiratory effort, lungs clear to auscultation no cough Auscultation: no crackles, no rhonchi and no wheezes Cardiovascular: RRR, no murmur, no edemat Gastrointestinal: Inspection/Auscultation: abdomen normal to inspection and normal bowel sounds; abdomen not distended Percussion/Palpation: abdomen soft; abdomen nontender, no guarding and abdomen not rigid Head/Neck/Chest: normocephalic, head atraumatic and neck supple Left lower extremity edema and pain with movement or palpation Skin: no rashes, warm and dry no lesions Neurologic: PERRL, EOMI, accommodation nl, no face palsy, no dysarthria moves all extremities Speech / Cognition: normal speech Motor/Sensory: no tremor Psychiatric: A+Ox3, euthymic affect Genitourinary: Deferred Lymphatic: no lymphadenopathy Principal Diagnosis (1) Pulmonary embolism (2) Deep vein thrombosis (DVT) of left lower extremity (3) Hypertension Discharge Exam General- No acute distress Head- atraumatic Eyes- PERRL, EOMI, ENT- oropharynx clear Neck- supple, no JVD Lungs- clear to auscultation Heart- regular rhythm; no murmur Abdomen- normal bowel sounds, soft, nontender Extremities- no calf tenderness, +LLE tenderness and +edema Neuro- alert, oriented x 3; PERRL, EOMI; no facial palsy; no dysarthria Skin- warm & dry Discharge Data Allergies Allergy/AdvReac Type Severity Reaction Status Date / Time No Known Allergies Allergy Unverified 10/17/19 17:19 Consultations 10/17/19 18:07 ED Decision to Admit Stat Ordered Studies 10/17/19 16:36 CT angio chest PE protocol Stat CT ANGIOGRAM OF THE CHEST CLINICAL HISTORY: Chest pain and DVT. Possible pulmonary embolism. Hypoxia. COMPARISON STUDY: Chest x-ray dated 10/17/2019 TECHNIQUE: Following the IV administration of 119 mL of Optiray-320, CT angiogram of the thorax was performed from the thoracic inlet to the lung bases utilizing the pulmonary embolus protocol. Images are reviewed in the axial, sagittal, and coronal planes. IV contrast was administered without complication. MIP imaging was performed. A dose lowering technique was utilized adhering to the principles of ALARA. There is mild hepatic steatosis. CT DOSE: 771.07 mGy.cm FINDINGS: No pathologically enlarged axillary mediastinal or hilar lymph nodes were visualized. There was no evidence of thoracic aortic dilatation. There are right upper lobe and right lower lobe pulmonary artery filling defects indicative of acute pulmonary embolism. There is slight flattening of the interventricular septum. Mild right ventricular strain cannot be excluded No pleural effusions are visualized. There is no focal pulmonary consolidation. IMPRESSION: 1. Moderate right lung pulmonary artery filling defects indicative of acute pulmonary embolism 2. Slight flattening of the interventricular septum. Mild right ventricular strain cannot be excluded 3. Hepatic steatosis ACT 112: Negative or not required by law. Electronically signed by: Nicola Arenas M.D. 10/17/2019 5:59 PM Dictated: 10/17/191750 Transcribed: 10/17/191754 XR chest 1V portable CLINICAL HISTORY: Atypical chest pain COMPARISON STUDY: No previous studies for comparison. FINDINGS: The heart is at the upper limits of normal in size. There is no failure. There is no focal pulmonary consolidation. There are no pleural effusions.[ IMPRESSION: No active disease in the chest. ACT 112: Negative or not required by law. Electronically signed by: Nicola Arenas M.D. 10/17/2019 4:54 PM Dictated: 10/17/191653 Transcribed: 10/17/191653 Hospital Course (1) Pulmonary embolism: (2) Deep vein thrombosis (DVT) of left lower extremity: Was advised to go to the ER after doppler of LLE showed Outpatient doppler showed DVT in left lower extremity CTA chest showed moderate right lung pulmonary artery filling defects indicative of acute pulmonary embolism ED provider confirmed with route service manager, that it was okay to start IV heparin (status post cataract surgery on Sunday) Starting on IV heparin drip on admission Anticoagulant discussed with patient about warfarin and NOAC Major risks discussed with patient while on anticoagulant such as abnormal bleeding (hematuria and blood in stools) Pt is interested in the DOACs. I spoke to the pharmacist it will cost $47/month for the Eliquis If too expensive for the DOACs, pt will choose the warfarin Pt said that he would be able to afford the $47 for the eliquis IV heparin drip was discontinued and transition to Eliquis 10mg BID for 7 days, then 5mg BID Hypercoagulable work up pending Echo showed normal left ventricular wall motion and thickness. Left ventricular wall motion is normal. Ejection fraction 60 to 65%. No RV strain documented on ECHO report. Stable (3) H/O: HTN (hypertension): Patient have history of hypertension, did not use his diuretic in the last few days Resume his BP med Continue monitor BP Status post right eye cataract surgery Continue eyedrops, ofloxacin, prednisolone, 4 times daily CODE STATUS: FULL Disposition Possible discharge home today Total Time Total Time Spent Total Time Spent (In Minutes): 35 minutes Total Time Includes: Examination of the Patient, Discharge Planning, Medication Reconciliation, Communication With Other Providers and Other Discharge Plan Discharge Items Patient Disposition: Home - Self-Care Reason For Visit: PE DVT Discharge Diagnosis: (1) Pulmonary embolism (2) Deep vein thrombosis (DVT) of left lower extremity (3) Hypertension Activity: Resume your previous activity Non-emergency contact: Primary Care Provider Call non-emergency contact if: you have any medication questions and your symptoms worsen Follow-up/Referrals: Phillip Singleton MD [Primary Care Provider] - Diet: Heart Healthy Addtl Attending Provider Instructions: Follow up with your primary care provider Dr. Singleton within 1 week Since you are on a blood thinner (Eliquis), monitor for any abnormal bleeding (Blood in your urine and stools ). Please notify your physician or seek medical attention if you develop any bleeding. Avoid any activity with high risks for fall Your doctor will discuss the results for the hypercoagulable work up. Tylenol 500 mg or 650mg every 8 to 12 hrs as needed can take for a short period of time for the pain. (Not to take with alcohol due to increase risk of Liver disease). Eliquis 10mg twice a day for 7 days, then on day 8 take 5 mg twice a day. continue until your doctor recommend to stop it. Medication Instructions: Eliquis Your condition is typically treated with an anticoagulant. Anticoagulants will thin your blood to help prevent new clots. You should take her medication exactly as directed. Never skip a dose. Never take a double dose. If you miss a dose, take it as soon as you remember. Avoid NSAIDs (Motrin, Aleve, Naproxen, Ibuprofen, Advil, Meloxicam,..) due to risks of bleeding Call your Primary Care doctor if you experience any of the following: Swelling or Pain in your leg Sudden, continuous pain deep in a muscle Pain that worsens when you are active or when you stand still for a long time Chest Pain Sudden Shortness of Breath Rapid or pounding heart beat Fainting Dizziness Cough with blood or bloody sputum Sweating more than normal Bruises Heavy or uncontrolled bleeding Blood in your urine, stool or vomit Black or tarry stools Caring for Your Self at Home: Avoid sitting, standing or lying down for long periods without moving your legs and feet When traveling by car, stop to get out and move around at least once every 3 hours On long airplane, train, motorcycle, or bus rides, get up and move around when possible If you can't get up, wiggle your toes and tighten your calves to keep your blood moving Pending Studies at Discharge: Yes Studies:: Hypercoagulable work up. Stand-Alone Forms: [facility], Smoking Cessation Medications and DC Order Prescriptions: New Eliquis 5 mg Tablet 5 mg PO UD Qty: 74 RF: 0 acetaminophen 325 mg Tablet 650 mg PO Q8H PRN (Reason: pain) Qty: 30 RF: 0 Continued ofloxacin [Ocuflox] 0.3 % drops 1 drp OPR QID RF: 0 prednisolone acetate [Pred Forte] 1 % drops,suspension 1 drp OPR QID RF: 0 fluocinonide 0.05 % cream 1 applic TOPICAL BID RF: 0 valsartan-hydrochlorothiazide [Diovan HCT] 160-25 mg tablet 1 tab PO DAILY RF: 0 Discontinued indomethacin 25 mg capsule 25 mg PO UD PRN (Reason: ..) RF: 0 Excedrin Extra Strength 250-250-65 mg Tablet 2 tab PO Q8 PRN (Reason: Pain) RF: 0 Discharge Orders: Discharge Order (Routine); Ordered 10/19/19 Ordered By: Tristin Calero Admission Data Admit Date/Time: 10/17/19 19:11 Attending Provider: Tristin Calero Admit Provider: Mikey Cook Primary Care Provider: Phillip Singleton Other Providers: Mikey Cook Other Interventions: Discharge Summary Assessment (RN) Last Done: 10/19/19 14:05 DC Date/Time DO NOT enter until pt leaves facility: 10/19/19 14:30
[2019-10-23 07:09] LABS: B2 Glycoprotein IgG <9 SGU (<=20); B2 Glycoprotein IgM <9 SMU (<=20); Protein S Functional(Activity) 89 % (70-150)
[2019-10-24 06:04] LABS: Anti Cardiolipin Ab IgG <14 GPL; Anti Cardiolipin Ab IgM <12 MPL; PTT LA Screen 121 sec (<=40)
[2019-10-24 07:27] LABS: Lupus Hex Phase (Rflxdonotord) Positive (Negative)
[2019-10-26] MEDS ORDERED: APIXABAN 5 MG TABLET PO SCH (09:00)
== END 2019-10-19 14:30 | disposition home or self-care (01) ==
LOC: ED 15:41 → SUATTDRO 19:11 → 2W 19:11 → INTOOBSV 19:11 → 2W 20:03

== ENCOUNTER 2023-10-17 14:51 | Inpatient (IN) ==
--- NOTE | 2023-10-17 15:36 | Emergency Department Note ---
Impression & Plan Cellulitis of left leg ED Provider Note HISTORY OF PRESENT ILLNESS: Patient is a 73-year-old male presenting with left lower extremity erythema and swelling. Patient reports that he has been having progressively worsening redness and swelling to his left lower leg since being discharged from the hospital 4 weeks ago. Patient denies any fevers or chills. He reports that today he noticed some oozing from his left lower extremity and decided to present to express care for evaluation. The provider express care reported to the patient that they could not palpate a pulse in his leg and they referred him to the emergency department. Patient denies any significant pain to the foot. Denies any numbness or tingling in his feet. He was prescribed doxycycline by the outpatient provider, but reports he has not yet started it. He reports that he was on antibiotics a month ago but nothing since. Patient reports that he has a history of a DVT in the left lower extremity is on Eliquis. Denies any missed doses. ROS: as above PHYSICAL EXAM: Constitutional: Patient appears in no acute distress. HENT: Head: Normocephalic and atraumatic. Eyes: EOMI, PERRL Mouth/Throat: Mucous membranes moist. Neck: Trachea midline. Neck supple. Abdominal: Abdomen soft, no tenderness, rebound or guarding. Musculoskeletal: - LLE: Circumferential erythema to the left lower extremity extending from ankle to proximal tibia. Open wounds that are oozing a serosanguineous fluid noted on the medial part of the left lower extremity. Faintly palpable dorsalis pedis pulse. Patient does have some mottling to his foot. Foot is warm to the touch. Patient is able to dorsiflex and plantarflex the ankle. Able to wiggle toes. Sensation intact to light touch throughout the nerve distributions of the leg. No palpable crepitus. Skin: Warm and dry. No rash, erythema, pallor or cyanosis Psychiatric: Appropriate mood and affect for situation. Neurological: Alert and keenly responsive. CN II-XII grossly intact, moving all extremities equally and fully. MDM: - Vitals signs showed hypertension and tachycardia. - History obtained via patient. History as above. - Chronic conditions affecting care: HTN; BPH - Differential diagnoses include, but are not limited to: DVT; arterial occlusion; necrotizing fasciitis; cellulitis - Order placed for continuous cardiac monitoring. At this time, monitor showed rate of 70 bpm with normal sinus rhythm, per my interpretation. - External medical records reviewed. Express care note dated today was reviewed. They document that they could not feel a dorsalis pedis pulse and referred the patient to the emergency department due to his lack of a pulse, discoloration of his left foot and nonhealing wounds. They also discharged him with a prescription for doxycycline for his cellulitis of the left lower extremity. - Laboratory workup interpreted by myself showed normal WBC; normal lactate; normal procalcitonin; slight hypokalemia (K 3.3) - Arterial US of LLE negative for arterial occlusion or high-grade stenosis. - Xray left lower extremity negative for free air to suggest necrotizing fasciitis - Patient given IV zosyn in ER. - Given patient's pain and extensive cellulitis on the LLE, will admit for IV antibiotic therapy. - Discussion was had with employment evaluator/case manager about patient's case and need for admission - Hospitalist consulted for admission - [facility] ASSESSMENT AND PLAN: Diagnosis: left lower extremity cellulitis Plan: admit Past Med/Surg History Problem List (Updated 10/17/23 @ 17:02 by Jennifer Erickson MD) Cellulitis of left leg (Acute) Medical History BPH with obstruction/lower urinary tract symptoms Elevated PSA H/O: HTN (hypertension) Deep vein thrombosis (DVT) of left lower extremity Pulmonary embolism Surgical History S/P cataract surgery H/O umbilical hernia repair Family History Father Cancer Prostate cancer Social History Smoking Status: Never smoker Hx Alcohol Use: Yes Alcohol type: beer Hx Substance Use: No Preferred Language: Romansh Communication Ability: Effective Marketing Communications Associate Required: No Beliefs That Will Affect Care: None marital status: Current Living Situation: Spouse Feels Safe at Home: Yes Assistive Devices: None Allergies Allergies Allergy/AdvReac Type Severity Reaction Status Date / Time No Known Allergies Allergy Unverified 10/17/23 17:17 Home Meds Home Medications Medication Instructions Recorded Confirmed acetaminophen 500 mg tablet 1,000 mg PO Q6H PRN Pain 12/01/20 10/17/23 (Tylenol Extra Strength) apixaban 5 mg tablet (Eliquis) 5 mg PO BID 10/17/23 10/17/23 atorvastatin 20 mg tablet 20 mg PO QAM 10/17/23 10/17/23 multivitamin 1 tab PO DAILY 10/17/23 10/17/23 valsartan 160 1 tab PO QAM 10/17/23 10/17/23 mg-hydrochlorothiazide 25 mg tablet Previous Rx's Medication Instructions Recorded aspirin 81 mg chewable tablet 81 mg PO DAILY #14 tabs 12/01/20 doxycycline hyclate 100 mg capsule 100 mg PO BID 10 days #20 caps 10/17/23 Results & Data (ED) Vital Signs Vital Signs - 24 hr 10/17/23 14:54 10/17/23 15:41 10/17/23 16:51 Temperature 36.6 C Temperature Source Temporal Artery Scan Pulse Rate 95 H 71 Pulse Rate [Apical] 69 Pulse Rhythm Regular Pulse Strength Normal Respiratory Rate 19 18 Respiratory Effort / Characteristics Non-Labored Non-Labored Spontaneous Respiratory Depth Normal Normal Respiratory Pattern Regular Blood Pressure 162/100 H Blood Pressure [Left Arm] 127/69 Blood Pressure Mean 120 Blood Pressure Mean [Left Arm] 88 Blood Pressure Position Sitting Blood Pressure Position [Left Arm] Sitting Pulse Oximetry 94 98 Oxygen Delivery Method Room Air Room Air Sepsis Recent Fever Within 48 Hours No Sepsis New/Unexplained Change in Mental Status No Sepsis Action Taken by Nursing No Action Required Laboratory Data 10/17/23 15:10 10/17/23 15:10 Lab Results 10/17/23 10/17/23 Range/Units 15:10 15:15 WBC 8.92 (4.8-10.8) K/ul RBC 5.19 (4.70-6.10) M/uL Hgb 15.3 (14.0-18.0) g/dl Hct 45.1 (42.0-52.0) % MCV 86.9 (80.0-100.0) fL MCH 29.5 (25.0-34.0) pg MCHC 33.9 (32.0-36.0) g/dL RDW Std Deviation 41.0 (36.4-46.3) fL RDW Coeff of [place] 13.0 (11.5-14.5) % Plt Count 254 (130-400) K/uL MPV 9.5 (9.4-12.4) fL Immature Gran % (Auto) 0.3 % Neut % (Auto) 75.1 % Lymph % (Auto) 15.4 % Gem % (Auto) 7.6 % Eos % (Auto) 1.2 % Baso % (Auto) 0.4 % Neut # (Auto) 6.69 H (1.40-6.50) K/uL Lymph # (Auto) 1.37 (1.20-3.40) K/uL Gem # (Auto) 0.68 H (0.11-0.59) K/uL Eos # (Auto) 0.11 (0.00-0.50) K/uL Baso # (Auto) 0.04 (0.00-0.20) K/uL Immature Gran # (Auto) 0.03 (0.01-0.20) K/uL Sodium 140 (136-145) mmol/L Potassium 3.3 L (3.5-5.1) mmol/L Chloride 104 (98-107) mmol/L Carbon Dioxide 25 (21-32) mmol/L Anion Gap 11 (3-11) BUN 15 (6-23) mg/dl Creatinine 1.02 (0.6-1.4) mg/dl Est Cr Clr Drug Dosing 85.1 ml/min Est GFR ( Amer) 83.5 ml/min Est GFR (Non-Af Amer) 72.1 ml/min BUN/Creatinine Ratio 14.7 (10-20) Glucose 105 H (70-99(Fasting)) mg/dl Lactate 1.5 (0.4-2.0) mmol/L Calcium 9.5 (8.6-10.3) mg/dl C-Reactive Protein < 0.50 (0-0.5) mg/dl Procalcitonin < 0.02 (0-0.5) ng/ml Administered Medications Discontinued Medications Piperacillin Sod/Tazobactam Sod (Zosyn) 4.5 gm in 100 mls @ 200 mls/hr IV NOW ONE Stop: 10/17/23 16:03 Last Admin: 10/17/23 15:46 Dose: 200 mls/hr Documented By: K[facility] Imaging Data Radiologist's Impression: Duplex Scan Lower Extremity Artery 10/17/23 15:33 US arterial duplex LE LT HISTORY: 73 years-old Male LLE wounds and mottling chronic wounds of the left lower leg. DVT of the left superficial femoral and popliteal veins. COMPARISON: Doppler 09/11/2023 TECHNIQUE: Multiple real-time sonographic images of the left lower extremity arterial structures were obtained assessing grayscale appearance, color and spectral flow FINDINGS: Atherosclerosis. Mostly triphasic waveforms above the level of the knee. Monophasic and biphasic waveforms in the lower leg with blunted waveforms demonstrating spectral broadening within the peroneal artery. No arterial occlusion or significantly elevated peak systolic velocities. Peak systolic velocities of 130 cm/s within the mid posterior tibial artery. IMPRESSION: 1. No arterial occlusion or evidence of high-grade stenosis. 2. Monophasic and biphasic waveforms in the lower leg. ACT 112: Negative or not required by law. The above report was generated using voice recognition software. It may contain grammatical, syntax or spelling errors. Electronically signed by: Nir Xiao M.D. 10/17/2023 4:52 PM Discharge Plan Visit Data Chief Complaint: Leg Injury/Pain Stated Complaint: LEG PAIN ED Provider: Jennifer Erickson Discharge Problem: Cellulitis of left leg Forms Stand Alone Forms: [facility] [employer] Prescriptions Prescriptions: No Action doxycycline hyclate 100 mg capsule 100 mg PO BID 10 Days Qty: 20 0RF Rx Instructions: did not start acetaminophen [Tylenol Extra Strength] 500 mg Tablet 1,000 mg PO Q6H PRN (Reason: Pain) aspirin 81 mg tablet,chewable 81 mg PO DAILY Qty: 14 0RF atorvastatin 20 mg tablet 20 mg PO QAM valsartan-hydrochlorothiazide 160-25 mg tablet 1 tab PO QAM Eliquis 5 mg tablet 5 mg PO BID multivitamin Tablet 1 tab PO DAILY Referrals Referrals: PCP,NO [Physician] -
[2023-10-17 15:46] LABS: Basophils # (auto) 0.04 K/uL (0.00-0.20); Basophils % (auto) 0.4 %; Eosinophils # (auto) 0.11 K/uL (0.00-0.50); Eosinophils % (auto) 1.2 %; Hematocrit (blood only) 45.1 % (42.0-52.0); Hemoglobin 15.3 g/dl (14.0-18.0); Immature Granulocytes # (auto) 0.03 K/uL (0.01-0.20); Immature Granulocytes % (auto) 0.3 %; Lymphocytes # (auto) 1.37 K/uL (1.20-3.40); Lymphocytes % (auto) 15.4 %; Mean Corpuscular Hemoglobin 29.5 pg (25.0-34.0); Mean Corpuscular Hgb Conc 33.9 g/dL (32.0-36.0); Mean Corpuscular Volume 86.9 fL (80.0-100.0); Mean Platelet Volume 9.5 fL (9.4-12.4); Monocytes # (auto) 0.68 K/uL (0.11-0.59); Monocytes % (auto) 7.6 %; Neutrophils # (auto) 6.69 K/uL (1.40-6.50); Neutrophils % (auto) 75.1 %; Platelet Count 254 K/uL (130-400); Red Blood Count 5.19 M/uL (4.70-6.10); White Blood Count 8.92 K/ul (4.8-10.8)
[2023-10-17] MEDS: PIPERACILLIN/TAZOBACTAM 4.5 GM/100 ML BAG IV ONE (15:46)
--- NOTE | 2023-10-17 16:53 | Ultrasound Report ---
US arterial duplex LE LT HISTORY: 73 years-old Male LLE wounds and mottling chronic wounds of the left lower leg. DVT of the left superficial femoral and popliteal veins. COMPARISON: Doppler 09/11/2023 TECHNIQUE: Multiple real-time sonographic images of the left lower extremity arterial structures were obtained assessing grayscale appearance, color and spectral flow FINDINGS: Atherosclerosis. Mostly triphasic waveforms above the level of the knee. Monophasic and biphasic wave forms in the lower leg with blunted waveforms demonstrating spectral broadening within the peroneal a rtery. No arterial occlusion or significantly elevated peak systolic velocities. Peak systolic veloci ties of 130 cm/s within the mid posterior tibial artery. IMPRESSION: 1. No arterial occlusion or evidence of high-grade stenosis. 2. Monophasic and biphasic waveforms in the lower leg. ACT 112: Negative or not required by law. The above report was generated using voice recognition software. It may contain grammatical, syntax o r spelling errors. Electronically signed by: Nri Xiao M.D. 10/17/2023 4:52 PM
[2023-10-17 17:06] LABS: Anion Gap 11 (3-11); Calcium 9.5 mg/dl (8.6-10.3); Carbon Dioxide 25 mmol/L (21-32); Chloride 104 mmol/L (98-107); Potassium 3.3 mmol/L (3.5-5.1); Sodium 140 mmol/L (136-145)
[2023-10-17 17:12] LABS: BUN Creatinine Ratio 14.7 (10-20); Blood Urea Nitrogen 15 mg/dl (6-23); C Reactive Protein < 0.50 mg/dl (0-0.5); Creatinine Clr Calc Pharmacy 85.1 ml/min; Est GFR (African American) 83.5 ml/min; Est GFR (Non-African American) 72.1 ml/min; Glucose 105 mg/dl (70-99(Fasting))
--- NOTE | 2023-10-17 17:28 | XRay Report ---
XR tibia fibula LT 2V HISTORY: 73 years-old Male LLE cellulitis; r/o free air acute pain and swelling of left lower leg COMPARISON: None TECHNIQUE: 2 views of the left tibia and fibula FINDINGS: Superficial venous varicosities with diffuse soft tissue prominence. Osteoarthritis of the knee and a nkle. No acute fracture, dislocation or osseous erosion. Moderate sized plantar calcaneal enthesophyt e. IMPRESSION: Soft tissue swelling without acute osseous abnormality. ACT 112: Negative or not required by law. The above report was generated using voice recognition software. It may contain grammatical, syntax o r spelling errors. Electronically signed by: Nir Xiao M.D. 10/17/2023 5:26 PM
--- NOTE | 2023-10-17 17:41 | History & Physical Report ---
Date of Service October 17, 2023 Assessment & Plan (1) Cellulitis of left leg: Plan Zion Vences is a 73y/o M with PMHx of HTN, dyslipidemia, mild cognitive impairment, history of DVT of LLE + PE [on Eliquis], BPH w/ LUTS and other problems listed below who presented to the ED for evaluation secondary to left lower leg swelling and erythema. Patient was seen in the ED on 09/10 for this same concern. At that time, the patient presented with some erythema and venous stasis changes of the left lower extremity. Ultrasound imaging of the left lower extremity at that time revealed evidence of DVT that was age-indeterminate. Patient has a history of DVT and PE in September 2019 that required anticoagulation at that time. Patient was ultimately placed on Eliquis at that time as well as a 10-day course of Keflex over suspicion for suspected superimposed infection over the area of venous stasis changes to the left lower extremity. Cellulitis of Left Leg CBC w/ no leukocytosis; Procalcitonin and lactate both negative. XR LT Tib/Fib reveals some soft tissue swelling; No acute osseous abnormality. MRI LLE pending to r/o osteomyelitis - follow. Received dose of IV Zosyn in ED; Will continue IV ABX coverage w/ Zosyn + Daptomycin. Wound cultures of LLE serous drainage ordered & pending - follow. LLE Venous Stasis Pt presented at [facility] earlier today for evaluation; Provider at [facility] reported to the patient that they could not palpate a pulse in his L foot - prompting arrival to ED. Pt w/ dusky appearance of L foot on presentation; however, arterial duplex US of LLE w/ NO occlusion or high-grade stenosis. Hypokalemia K+ 3.3 on admission; Ordered 10mEq IV KCl x 4 bags. Continue to monitor and replete K+ PRN. Left Lower Extremity DVT H/O Pulmonary Embolism [September 2019] From [place] ED visit on 09/11/23: Ultrasound imaging of the left lower extremity at that time revealed evidence of DVT that was age-indeterminate. Patient was ultimately placed on Eliquis on 09/10; Will repeat duplex US of LLE to monitor DVT progression - follow results. HTN BP stable on admission; Can continue [employer] valsartan-HCTZ. Continuous cardiac monitoring in place, monitor BP. Hyperlipidemia Cerebral Vascular Disease Pt on statin therapy [employer]; Will hold statin for now 2/2 daptomycin use. History of cerebral vascular disease per PCP records; Has been taking baby aspirin since 2020 - will continue. DVT Prophylaxis: On Eliquis [employer] - will continue. Code Status: FULL CODE PCP: Phillip Singleton MD Disposition: Admit to Med/Surg w/ Telemetry Patient seen in collaboration with Dr. Mao. Please see addendum. I spent a total of 65 minutes coordinating, documenting, and providing care for this patient excluding time spent in the performance of separately billed services. This included personally reviewing all current laboratories and imaging studies, medical reconciliation, outpatient chart review and discussion with specialists. This chart was completed in part utilizing Speech Voice Recognition Software. Grammatical errors, random word insertions, pronoun errors, and incomplete sentences are an occasional consequence of this system due to software limitations, ambient noise, and hardware issues. Any formal questions or concerns about the content, text, or information contained within the body of this dictation should be directly addressed to the provider for clarification. History of Present Illness Chief Complaint: Left Leg Erythema & Swelling Primary Care Provider: Phillip Singleton MD Zion Vences is a 73y/o M with PMHx of HTN, dyslipidemia, mild cognitive impairment, history of DVT of LLE + PE [on Eliquis], BPH w/ LUTS and other problems listed below who presented to the ED for evaluation secondary to left lower leg swelling and erythema. History obtained from patient and associated chart review. Patient was seen in the ED on 09/10 for this same concern. At that time, the patient presented with some erythema and venous stasis changes of the left lower extremity. Ultrasound imaging of the left lower extremity at that time revealed evidence of DVT that was age-indeterminate. Patient has a history of DVT and PE in September 2019 that required anticoagulation at that time. Patient was ultimately placed on Eliquis at that time as well as a 10-day course of Keflex over suspicion for suspected superimposed infection over the area of venous stasis changes to the left lower extremity. Patient was hemodynamically stable, saturating well on room air and denied any chest pain or shortness of breath at time of discharge from the ED following that visit. Patient reports progressive worsening of his left lower leg erythema and swelling since being sent home from the ED on 09/10. Denies any fevers, chills or body aches. Does mention that he's been experiencing some oozing from the left lower leg for the past few weeks - clear to yellowish in appearance. He presented at [facility] earlier today for evaluation. According to Dr. Erickson, the provider at [facility] reported to the patient that they could not palpate a pulse in his leg and they subsequently referred him to the emergency department. Patient denies any significant pain to the foot and any numbness/tingling in his feet. He was prescribed doxycycline by the outpatient provider at [facility], but reports he has not yet started it. He mentions that he was on antibiotics last month, but nothing since. Patient states that he has a history of a DVT in the left lower extremity and is on Eliquis - denies any missed doses. Allergies Allergy/AdvReac Type Severity Reaction Status Date / Time No Known Allergies Allergy Unverified 10/17/23 17:17 Home Medications Medication Instructions Recorded Confirmed Type acetaminophen 500 mg tablet 1,000 mg PO Q6H PRN Pain 12/01/20 10/17/23 History (Tylenol Extra Strength) aspirin 81 mg chewable tablet 81 mg PO DAILY #14 tabs 12/01/20 10/17/23 Rx apixaban 5 mg tablet (Eliquis) 5 mg PO BID 10/17/23 10/17/23 History atorvastatin 20 mg tablet 20 mg PO QAM 10/17/23 10/17/23 History doxycycline hyclate 100 mg capsule 100 mg PO BID 10 days #20 caps 10/17/23 10/17/23 Rx multivitamin 1 tab PO DAILY 10/17/23 10/17/23 History valsartan 160 1 tab PO QAM 10/17/23 10/17/23 History mg-hydrochlorothiazide 25 mg tablet Past Med/Surg History Problem List Cellulitis of left leg (Acute) Medical History BPH with obstruction/lower urinary tract symptoms Elevated PSA H/O: HTN (hypertension) Deep vein thrombosis (DVT) of left lower extremity Pulmonary embolism Surgical History S/P cataract surgery H/O umbilical hernia repair Family History Father Cancer prostate Prostate cancer Social History Smoking Status: Never smoker Hx Alcohol Use: No Hx Substance Use: No Preferred Language: Peruvian Communication Ability: Effective Sat Tutor Required: No Beliefs That Will Affect Care: None marital status: Current Living Situation: Spouse Other Information That Helps Us Care for You: No Feels Safe at Home: Yes Safety Concerns: Feels Safe At This Time Assistive Devices: Glasses Assistive Devices Comment: readers Review of Systems Review of Systems: At least ten systems reviewed and negative, except as noted in the HPI. Physical Exam Physical Exam: General: WD/WN, vitals as above, NAD, sitting up in bed, pleasant, conversing appropriately. A+Ox3, euthymic affect. HEENT: Normocephalic, atraumatic. PERRL, conjunctivae normal, anicteric sclerae. External ear and nose normal, oropharynx normal. Respiratory: Normal respiratory effort, lungs clear to auscultation, no wheeze, rales, rhonchi. No accessory muscle use. Cardiovascular: Regular rate, rhythm, no murmur, normal peripheral pulses, no BLE edema. Vessels: No JVD. Abdomen/GI: Normal bowel sounds, soft, nontender, no hepatosplenomegaly. Extremities/Musculoskeletal: Circumferential erythema of LLE, open wounds draining serous fluid. Neurologic: PERRL, EOMI, accommodation nl, no face palsy, no dysarthria, sensation intact to light touch in LLE and L foot. Skin: Mottling of L foot, somewhat dusky in appearance. L foot however warm to touch. Venous stasis changes of b/l LE noted. Results & Data Results & Data Vital Signs (Past 12 Hours) Vital Signs Temp Pulse Pulse Resp BP BP Pulse Ox 10/17/23 16:51 69 18 127/69 98 10/17/23 15:41 71 10/17/23 14:54 36.6 C 95 H 19 162/100 H 94 O2 Del Method 10/17/23 16:51 Room Air 10/17/23 15:41 10/17/23 14:54 Room Air Laboratory Results Short CBC 10/17/23 Range/Units 15:10 WBC 8.92 (4.8-10.8) K/ul Hgb 15.3 (14.0-18.0) g/dl Hct 45.1 (42.0-52.0) % Plt Count 254 (130-400) K/uL BMP 10/17/23 15:10 Sodium 140 Potassium 3.3 L Chloride 104 Carbon Dioxide 25 BUN 15 Creatinine 1.02 Glucose 105 H Calcium 9.5 Diagnostic Findings Duplex Scan Lower Extremity Artery 10/17/23 15:33 US arterial duplex LE LT HISTORY: 73 years-old Male LLE wounds and mottling chronic wounds of the left lower leg. DVT of the left superficial femoral and popliteal veins. COMPARISON: Doppler 09/11/2023 TECHNIQUE: Multiple real-time sonographic images of the left lower extremity art erial structures were obtained assessing grayscale appearance, color and spectral flow FINDINGS: Atherosclerosis. Mostly triphasic waveforms above the level of the knee. Monophasic and biphasic waveforms in the lower leg with blunted waveforms demonstrating spectral broadening within the peroneal artery. No arterial occlusion or significantly elevated peak systolic velocities. Peak systolic cesar ocities of 130 cm/s within the mid posterior tibial artery. IMPRESSION: 1. No arterial occlusion or evidence of high-grade stenosis. 2. Monophasic and biphasic waveforms in the lower leg. ACT 112: Negative or not required by law. The above report was generated using voice recognition software. It may contain grammatical, syntax or spelling errors. Electronically signed by: Nir Xiao M.D. 10/17/2023 4:52 PM Tibia/Fibula X-Ray 10/17/23 15:36 XR tibia fibula LT 2V HISTORY: 73 years-old Male LLE cellulitis; r/o free air acute pain and swelling of left lower leg COMPARISON: None TECHNIQUE: 2 views of the left tibia and fibula FINDINGS: Superficial venous varicosities with diffuse soft tissue prominence. Osteoarthritis of the knee and ankle. No acute fracture, dislocation or osseous erosion. Moderate sized plantar calcaneal enthesophyte. IMPRESSION: Soft tissue swelling without acute osseous abnormality. ACT 112: Negative or not required by law. The above report was generated using voice recognition software. It may contain grammatical, syntax or spelling errors. Electronically signed by: Nir Xiao M.D. 10/17/2023 5:26 PM Medications Administered Discontinued Medications Piperacillin Sod/Tazobactam Sod (Zosyn) 4.5 gm in 100 mls @ 200 mls/hr IV NOW ONE Stop: 10/17/23 16:03 Last Infusion: 10/17/23 17:29 Dose: Infused Documented By: Admin: 10/17/23 15:46 Dose: 200 mls/hr Documented By: KMHarlan Code Status & VTE Plan Code Status FULL CODE VTE Prophylaxis Plan VTE Prophylaxis will be ordered: Yes Supervising Physician Co-Signing Physician Notes Pt was seen and examined by myself, Ketty Mao MD on the day of service. Care was coordinated with Razia Ho PA-C. 73yoM with LLE wound and cellulitis Nontoxic on exam, notes some pain but denies fevers, chills. Notes drainage of the wound. LLE erythematous and swollen with noted scabs in areas and yellowish drainage on underlying towel Not currently septic. Surface wound culture ordered, wound care nurse consulted. Arterial dopplers unremarkable. IV Daptomycin with IV Zosyn, narrow based on culture Pain control, consider diuretic for noted swelling if no improvement of swelling with infection treatment. Otherwise as above. I spent a total [id number] coordinating, documenting, and providing care for this patient excluding time spent in the performance of separately billed services
[2023-10-17] MEDS ORDERED: ONDANSETRON INJ 2 MG/ML 2 ML VIAL IV PRN (21:36)
[2023-10-17] MEDS ORDERED: HYDROmorphone INJ 0.5 MG/0.5 ML SYR IV PRN (21:36)
[2023-10-17] MEDS ORDERED: oxyCODONE HCL IR 5 MG TAB (IMMEDIATE RELEASE) PO PRN (21:36)
[2023-10-17] MEDS ORDERED: ACETAMINOPHEN 325 MG TAB PO PRN (21:36)
[2023-10-17] MEDS: DAPTOmycin 375 MG in SYRINGE 0 ML IV SCH (22:23)
[2023-10-17] MEDS: PIPERACILLIN/TAZOBACTAM 4.5 GM in DEXTROSE 5% MINI-B 100 ML IV SCH (22:23)
[2023-10-17] MEDS: APIXABAN 5 MG TABLET PO SCH (22:23)
[2023-10-17] MEDS: POTASSIUM CHLORIDE CRTAB 20 MEQ TABCR PO STA (22:27)
--- NOTE | 2023-10-17 23:17 | Ultrasound Report ---
Exam(s): US VENOUS LEFT LOWER EXTREMITY EXAM: US Duplex Left Lower Extremity Veins CLINICAL HISTORY: Reason for exam: History of DVT in LLE. TECHNIQUE: Real-time duplex ultrasound scan of the left lower extremity veins integrating B-mode two-dimensional vascular structure, Doppler spectral analysis, color flow Doppler imaging and compression. COMPARISON: 09/11/23 FINDINGS: Deep veins: Redemonstration of thrombus extending from the proximal superficial femoral vein to the popliteal vein. Superficial veins: No thrombus in the visualized great saphenous vein. IMPRESSION: Redemonstration of thrombus extending from the proximal superficial femoral vein to the popliteal vein. Electronically signed by: Tim Wynne M.D. 10/17/23 23:17 PM
--- NOTE | 2023-10-18 02:10 | Magnetic Resonance Report ---
Exam(s): MRI EXTREMITY Without Contrast EXAM: MR Left Lower Extremity Without Intravenous Contrast, Foot CLINICAL HISTORY: Reason for exam: Need to r/o osteomyelitis. TECHNIQUE: Multiplanar magnetic resonance images of the left foot without intravenous contrast. COMPARISON: No relevant prior studies available. FINDINGS: LIGAMENTS: Medial collateral: Unremarkable. Lateral collateral: Unremarkable. Lisfranc: Unremarkable. TENDONS: Flexor: Unremarkable. Extensor: Unremarkable. Peroneal: Unremarkable. Tibialis anterior: Unremarkable. Tibialis posterior: Unremarkable. Muscles: Age-related atrophy throughout the calf musculature, preferentially involve the soleus and gastrocnemius muscles. Fluid: Unremarkable. No joint effusion. Sinus tarsi: Unremarkable as visualized. Tarsal tunnel: Unremarkable. Plantar fascia: Unremarkable. Cartilage: Unremarkable. Bones/joints: See below. Soft tissues: Subcutaneous edema about the anterolateral calf. Mild skin thickening, correlate for mild cellulitis. No fluid collection, abscess, subcutaneous air, myositis, or osteomyelitis. IMPRESSION: 1. No fluid collection, abscess, subcutaneous air, myositis, or osteomyelitis. 2. Subcutaneous edema about the anterolateral calf. Mild skin thickening, correlate for mild cellulitis. Electronically signed by: Rogelio Marcum MD 10/18/23 02:09 AM
[2023-10-18] MEDS: POTASSIUM CHLORIDE / WTR 10 MEQ/100 ML PLCT IV SCH (07:06)
[2023-10-18 07:33] LABS: Hemoglobin 13.9 g/dl (14.0-18.0); Mean Corpuscular Hemoglobin 30.1 pg (25.0-34.0); Mean Corpuscular Hgb Conc 34.8 g/dL (32.0-36.0); Mean Corpuscular Volume 86.6 fL (80.0-100.0); Mean Platelet Volume 9.3 fL (9.4-12.4); Platelet Count 231 K/uL (130-400); RDW Coefficient of Variation 13.1 % (11.5-14.5); RDW Standard Deviation 41.1 fL (36.4-46.3); Red Blood Count 4.62 M/uL (4.70-6.10); White Blood Count 6.85 K/ul (4.8-10.8)
[2023-10-18] MEDS: VALSARTAN 80 MG TAB PO SCH (08:07)
[2023-10-18 08:08] LABS: Albumin Globulin Ratio 1.3 (0.9-2); Albumin Level 3.7 gm/dl (3.4-5.0); BUN Creatinine Ratio 15.2 (10-20); Bilirubin,Total 1.6 mg/dl (0.2-1.0); Creatinine Clr Calc Pharmacy 83.9 ml/min; Est GFR (African American) 80.7 ml/min; Est GFR (Non-African American) 69.6 ml/min; Globulin 2.8 gm/dl (2.5-4.0); Magnesium 1.9 mg/dl (1.7-2.4); Phosphorus 3.1 mg/dl (2.5-4.9); Total Protein 6.5 gm/dl (6.0-8.3)
[2023-10-18] MEDS: ASPIRIN 81 MG CHEW PO SCH (08:08)
[2023-10-18] MEDS: hydroCHLOROthiazide 25 MG TAB PO SCH (08:08)
[2023-10-18] MEDS: MULTIVITAMIN TAB PO SCH (08:08)
--- NOTE | 2023-10-18 16:11 | Hospitalist Progress Note ---
Date of Service October 18, 2023 Assessment & Plan (1) Cellulitis of left leg: Plan Zion Vences is a 73y/o M with PMHx of HTN, dyslipidemia, mild cognitive impairment, history of DVT of LLE + PE [on Eliquis], BPH w/ LUTS and other problems listed below who presented to the ED for evaluation secondary to left lower leg swelling and erythema. Patient was seen in the ED on 09/10 for this same concern. At that time, the patient presented with some erythema and venous stasis changes of the left lower extremity. Ultrasound imaging of the left lower extremity at that time revealed evidence of DVT that was age-indeterminate. Patient has a history of DVT and PE in September 2019 that required anticoagulation at that time. Patient was ultimately placed on Eliquis at that time as well as a 10-day course of Keflex over suspicion for suspected superimposed infection over the area of venous stasis changes to the left lower extremity. Cellulitis of Left Leg No sepsis-CBC w/ no leukocytosis;Procalcitonin and lactate both negative. XR LT Tib/Fib reveals some soft tissue swelling; No acute osseous abnormality. MRI LLE-No osteomyelitis Received dose of IV Zosyn in ED; Will continue IV ABX coverage w/ Zosyn + Daptomycin. Wound cultures of LLE serous drainage ordered & pending - follow. Appreciate wound care input and recommendation He has been feeling better clinically Will continue current antibiotic until get the results of culture Possible discharge on oral Augmentin LLE Venous Stasis Pt presented at [facility] earlier today for evaluation; Provider at [facility] reported to the patient that they could not palpate a pulse in his L foot - prompting arrival to ED. Pt w/ dusky appearance of L foot on presentation; However, arterial duplex US of LLE w/ NO occlusion or high-grade stenosis. Will advise for outpatient appointment with vascular surgery through the PCP Hypokalemia K+ 3.3 on admission; Ordered 10mEq IV KCl x 4 bags. Potassium level has been normalized Left Lower Extremity DVT H/O Pulmonary Embolism [September 2019] From [place] ED visit on 09/11/23: Ultrasound imaging of the left lower extremity at that time revealed evidence of DVT that was age-indeterminate. Patient was ultimately placed on Eliquis on 09/10; Will repeat duplex US of LLE to monitor DVT progression - Redemonstration of thrombus extending from the proximal superficial femoral vein to the popliteal vein. 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 Continuous cardiac monitoring in place, monitor BP. Hyperlipidemia Cerebral Vascular Disease Pt on statin therapy [employer]GER [employer]ATION; Will hold statin for now 2/2 daptomycin use. History of cerebral vascular disease per PCP records; Has been taking baby aspirin since 2020 - will continue. DVT Prophylaxis: On Eliquis [employer]GER COM[employer]ATION - will continue. Code Status: FULL CODE PCP: Phillip Singleton MD Disposition: Admit to Med/Surg w/ Telemetry Admission and Anticipated Discharge Date Admission Date: October 17, 2023 Subjective 10/18/2023 The patient was seen and examined in medical telemetry unit He has been complaining of pain in the left leg and left ankle for the last 2 to 3 weeks Was admitted with worsening cellulitis involving the left leg Denies any fever and or chills Review of Systems Review of Systems: All systems reviewed and are unremarkable except as noted below Physical Exam Physical Exam: Sitting at the edge of the bed without any acute distress Constitutional: + ill appearing and average body habitus Eyes: PERRL, conjunctivae normal, anicteric sclerae ENMT: external ear and nose normal, oropharynx normal Neck: trachea midline, no thyromegaly Respiratory: no respiratory distress Auscultation: lungs clear to auscultation bilaterally Cardiovascular: Rate/Rhythm: regular rate and regular rhythm; not tachycardic Heart Sounds: normal S1 and normal S2; no murmur Extremities: + edema (Trace edema bilaterally) Gastrointestinal (Abdomen): Inspection/Auscultation: normal bowel sounds; abdomen not distended Percussion/Palpation: abdomen soft; abdomen nontender Musculoskeletal: No acute arthritis involving any of the joints Skin: Cellulitis involving the left leg with open wounds at placesplease see the wound picture Neurologic: normal touch/pain/proprioception and moves all extremities; no focal motor deficits Psychiatric: A+Ox3, euthymic affect Lymphatic: no cervical or axillary lymphadenopathy Results & Data Results & Data Vital Signs (Past 12 Hours) Vital Signs Temp Pulse Pulse Resp BP Pulse Ox O2 Del Method 10/18/23 13:49 66 10/18/23 08:11 Room Air 10/18/23 07:36 36.8 C 62 18 119/69 93 Room Air 10/18/23 07:18 62 Laboratory Results Short CBC 10/18/23 Range/Units 07:01 WBC 6.85 (4.8-10.8) K/ul Hgb 13.9 L (14.0-18.0) g/dl Hct 40.0 L (42.0-52.0) % Plt Count 231 (130-400) K/uL BMP 10/17/23 10/18/23 15:10 07:01 Sodium 140 141 Potassium 3.3 L 4.0 D Chloride 104 107 Carbon Dioxide 25 29 BUN 15 16 Creatinine 1.02 1.05 Glucose 105 H 105 H Calcium 9.5 9.0 Liver Function 10/18/23 Range/Units 07:01 Total Bilirubin 1.6 H (0.2-1.0) mg/dl AST 21 (13-39) U/L ALT 21 (7-52) U/L Alkaline Phosphatase 68 (34-104) U/L Albumin 3.7 (3.4-5.0) gm/dl Medications Administered Current Inpatient Medications Acetaminophen (Acetaminophen 325 Mg Tab) 650 mg PO Q6H PRN PRN Reason: Mild Pain (Scale 1, 2, 3) Stop: 11/16/23 21:35 Apixaban (Apixaban 5 Mg Tablet) 5 mg PO BID [facility] Stop: 11/16/23 21:35 Last Admin: 10/18/23 08:07 Dose: 5 mg Aspirin (Aspirin 81 Mg Chew) 81 mg PO DAILY [facility] Stop: 11/17/23 08:59 Last Admin: 10/18/23 08:08 Dose: 81 mg Hydrochlorothiazide (Hydrochlorothiazide 25 Mg Tab) 25 mg PO QAM [facility] Stop: 11/17/23 08:59 Last Admin: 10/18/23 08:08 Dose: 25 mg Hydromorphone HCl (Hydromorphone Inj 0.5 Mg/0.5 Ml Syr) 0.25 mg IV Q6H PRN PRN Reason: Severe Pain (Scale 7, 8, 9,10) Stop: 10/31/23 21:35 Piperacillin Sod/Tazobactam (Sod 4.5 gm/ Dextrose) 100 mls @ 25 mls/hr IV Q8H [facility]; Protocol Stop: 10/24/23 21:44 Last Admin: 10/18/23 13:22 Dose: 25 mls/hr Daptomycin 375 mg/ Syringe 7.5 mls @ 3.75 mls/min IV Q24H [facility]; Protocol Stop: 10/24/23 21:59 Last Admin: 10/17/23 22:23 Dose: 3.75 mls/min Multivitamins (Multivitamin Tab) 1 tab PO DAILY [facility] Stop: 11/17/23 08:59 Last Admin: 10/18/23 08:08 Dose: Not Given Ondansetron HCl (Ondansetron Inj 2 Mg/Ml 2 Ml Vial) 4 mg IV Q6H PRN PRN Reason: Nausea Stop: 11/16/23 21:35 Oxycodone HCl (Oxycodone Hcl Ir 5 Mg Tab (Immediate Release)) 5 mg PO Q6H PRN PRN Reason: Moderate Pain (Scale 4, 5, 6) Stop: 10/31/23 21:35 Polyethylene Glycol (Polyethylene (Miralax) 17 Gm Pack) 17 gm PO DAILY PRN PRN Reason: Constipation Stop: 11/16/23 21:35 Valsartan (Valsartan 80 Mg Tab) 160 mg PO QAM [facility] Stop: 11/17/23 08:59 Last Admin: 10/18/23 08:07 Dose: 160 mg
[2023-10-19 07:00] LABS: Basophils # (auto) 0.05 K/uL (0.00-0.20); Basophils % (auto) 0.8 %; Eosinophils # (auto) 0.15 K/uL (0.00-0.50); Eosinophils % (auto) 2.5 %; Hematocrit (blood only) 40.8 % (42.0-52.0); Hemoglobin 13.9 g/dl (14.0-18.0); Immature Granulocytes # (auto) 0.03 K/uL (0.01-0.20); Immature Granulocytes % (auto) 0.5 %; Lymphocytes # (auto) 1.48 K/uL (1.20-3.40); Lymphocytes % (auto) 24.8 %; Mean Corpuscular Hgb Conc 34.1 g/dL (32.0-36.0); Mean Corpuscular Volume 88.1 fL (80.0-100.0); Mean Platelet Volume 9.3 fL (9.4-12.4); Monocytes # (auto) 0.68 K/uL (0.11-0.59); Monocytes % (auto) 11.4 %; Neutrophils # (auto) 3.57 K/uL (1.40-6.50); Platelet Count 207 K/uL (130-400); RDW Coefficient of Variation 13.1 % (11.5-14.5); Red Blood Count 4.63 M/uL (4.70-6.10); White Blood Count 5.96 K/ul (4.8-10.8)
[2023-10-19 07:14] LABS: BUN Creatinine Ratio 16.7 (10-20); Calcium 9.1 mg/dl (8.6-10.3); Creatinine Clr Calc Pharmacy 73.5 ml/min; Est GFR (African American) 68.6 ml/min; Est GFR (Non-African American) 59.2 ml/min; Potassium 3.9 mmol/L (3.5-5.1)
--- NOTE | 2023-10-19 13:38 | Consultation ---
Date of Consultation October 19, 2023 Assessment & Plan (1) Stasis dermatitis of lower extremity due to chronic peripheral vascular hypertension: Would recommend follow up with the wound center. Elevation. Compression stockings once the drainage has stopped. May consider unna boot May need topical steroids to the affected area if inflammation worsens. No evidence of arterial insufficiency of the lower extremities. Thank you very much for letting us participate in the care of this patient. History of Present Illness Reason for Consultation: pad Attending Physician: Gagandeep Paz MD History of Present Illness Patient is a 73yo male with recurrent dvt of the left lower extremity, edema, cellulitis, and stasis dermatitis. He complains of serous drainage. He has no complaints of claudication or rest pain. Allergies Allergy/AdvReac Type Severity Reaction Status Date / Time No Known Allergies Allergy Unverified 10/17/23 17:17 Home Medications Medication Instructions Recorded Confirmed Type acetaminophen 500 mg tablet 1,000 mg PO Q6H PRN Pain 12/01/20 10/17/23 History (Tylenol Extra Strength) aspirin 81 mg chewable tablet 81 mg PO DAILY #14 tabs 12/01/20 10/17/23 Rx apixaban 5 mg tablet (Eliquis) 5 mg PO BID 10/17/23 10/17/23 History atorvastatin 20 mg tablet 20 mg PO QAM 10/17/23 10/17/23 History doxycycline hyclate 100 mg capsule 100 mg PO BID 10 days #20 caps 10/17/23 10/17/23 Rx multivitamin 1 tab PO DAILY 10/17/23 10/17/23 History valsartan 160 1 tab PO QAM 10/17/23 10/17/23 History mg-hydrochlorothiazide 25 mg tablet Patient History Medical History BPH with obstruction/lower urinary tract symptoms Elevated PSA H/O: HTN (hypertension) Deep vein thrombosis (DVT) of left lower extremity Pulmonary embolism Surgical History S/P cataract surgery H/O umbilical hernia repair Family History Father Cancer prostate Prostate cancer Social History Smoking Status: Never smoker Hx Alcohol Use: No Hx Substance Use: No Preferred Language: Setswana Communication Ability: Effective Mid Wife Required: No Beliefs That Will Affect Care: None marital status: Current Living Situation: Spouse Other Information That Helps Us Care for You: No Feels Safe at Home: Yes Safety Concerns: Feels Safe At This Time Assistive Devices: None Assistive Devices Comment: readers Review of Systems Review of Systems: All systems reviewed & are unremarkable except as noted in HPI & below Physical Exam Constitutional: WD/WN, vitals as above Respiratory: normal respiratory effort; no respiratory distress Cardiovascular: Rate/Rhythm: regular rate and regular rhythm Vessels: normal peripheral pulses (both upper and lower extremities) Skin: stasis dermatitis changes of the left lower extremity Neurologic: CN's II-XI intact bilaterally and moves all extremities Psychiatric: A+Ox3, euthymic affect Results & Data Vital Signs (Past 12 Hours) Vital Signs Temp Pulse Pulse Resp BP BP Pulse Ox 10/19/23 11:15 36.7 C 85 18 95/66 L 98 10/19/23 07:43 55 L 10/19/23 07:29 36.4 C L 59 L 18 117/72 97 10/19/23 02:35 36.4 C L 68 16 144/73 H 97 O2 Del Method 10/19/23 11:15 Room Air 10/19/23 07:43 10/19/23 07:29 Room Air 10/19/23 02:35 Room Air
--- NOTE | 2023-10-19 14:00 | Hospitalist Progress Note ---
Date of Service October 19, 2023 Assessment & Plan (1) Cellulitis of left leg: Plan Zion Vences is a 73y/o M with PMHx of HTN, dyslipidemia, mild cognitive impairment, history of DVT of LLE + PE [on Eliquis], BPH w/ LUTS and other problems listed below who presented to the ED for evaluation secondary to left lower leg swelling and erythema. Patient was seen in the ED on 09/10 for this same concern. At that time, the patient presented with some erythema and venous stasis changes of the left lower extremity. Ultrasound imaging of the left lower extremity at that time revealed evidence of DVT that was age-indeterminate. Patient has a history of DVT and PE in September 2019 that required anticoagulation at that time. Patient was ultimately placed on Eliquis at that time as well as a 10-day course of Keflex over suspicion for suspected superimposed infection over the area of venous stasis changes to the left lower extremity. Cellulitis of Left Leg No sepsis-CBC w/ no leukocytosis;Procalcitonin and lactate both negative. XR LT Tib/Fib reveals some soft tissue swelling; No acute osseous abnormality. MRI LLE-No osteomyelitis Received dose of IV Zosyn in ED; Will continue IV ABX coverage w/ Zosyn + Daptomycin. Wound cultures of LLE serous drainage ordered & pending - follow. Appreciate wound care input and recommendation He has been feeling better clinically Will continue current antibiotic until get the results of culture Possible discharge on oral Augmentin Zosyn has been discontinued and has been on daptomycin only from 10/19/2023 Awaiting sensitivity He has been feeling much better otherwise Likely discharge home this afternoon or tomorrow following the results of sensitivities LLE Venous Stasis Pt presented at [facility] earlier today for evaluation; [facility] to [facility] patient that they could not palpate a pulse in his L foot - prompting arrival to ED. Pt w/ dusky appearance of L foot on presentation; However, arterial duplex US of LLE w/ NO occlusion or high-grade stenosis. Will advise for outpatient appointment with vascular surgery through the PCP Appreciate vascular surgery input and recommendation No evidence of arterial insufficiency in the legs Will continue to have outpatient follow-up Hypokalemia K+ 3.3 on admission; Ordered 10mEq IV KCl x 4 bags. Potassium level has been normalized Left Lower Extremity DVT H/O Pulmonary Embolism [September 2019] From [place] ED visit on 09/11/23: Ultrasound imaging of the left lower extremity at that time revealed evidence of DVT that was age-indeterminate. Patient was ultimately placed on Eliquis on 09/10; Will repeat duplex US of LLE to monitor DVT progression - Redemonstration of thr ombus extending from the proximal superficial femoral vein to the popliteal vein. Continue Eliquis HTN BP stable on admission; Can continue [employer]ER valsartan-HCTZ. Continuous cardiac monitoring in place, monitor BP. Hyperlipidemia Cerebral Vascular Disease Pt on statin therapy [employer]S [employer]INER; Will hold statin for now 2/2 daptomycin use. History of cerebral vascular disease per PCP records; Has been taking baby aspirin since 2020 - will continue. DVT Prophylaxis: On Eliquis [employer]S [employer]INER - will continue. Code Status: FULL CODE PCP: Phillip Singleton MD Disposition: Admit to Med/Surg w/ Telemetry Likely discharge tomorrow Admission and Anticipated Discharge Date Admission Date: October 17, 2023 Subjective 10/18/2023 The patient was seen and examined in medical telemetry unit He has been complaining of pain in the left leg and left ankle for the last 2 to 3 weeks Was admitted with worsening cellulitis involving the left leg Denies any fever and or chills 10/19/2023 The patient was seen and examined in medical telemetry unit He has been stable and the left leg wound has been improving Denies any more pain in the knee or in the ankle He is worried about having arterial insufficiency and worsening symptoms of his legs Review of Systems Review of Systems: All systems reviewed and are unremarkable except as noted below Physical Exam Physical Exam: Sitting at the edge of the bed without any acute distress Constitutional: + ill appearing and average body habitus Eyes: PERRL, conjunctivae normal, anicteric sclerae ENMT: external ear and nose normal, oropharynx normal Neck: trachea midline, no thyromegaly Respiratory: no respiratory distress Auscultation: lungs clear to auscultation bilaterally Cardiovascular: Rate/Rhythm: regular rate and regular rhythm; not tachycardic Heart Sounds: normal S1 and normal S2; no murmur Extremities: + edema (Trace edema bilaterally) Gastrointestinal (Abdomen): Inspection/Auscultation: normal bowel sounds; abdomen not distended Percussion/Palpation: abdomen soft; abdomen nontender Neurologic: normal touch/pain/proprioception and moves all extremities; no focal motor deficits Psychiatric: A+Ox3, euthymic affect Lymphatic: no cervical or axillary lymphadenopathy Results & Data Results & Data Vital Signs (Past 12 Hours) Vital Signs Temp Pulse Pulse Resp BP BP Pulse Ox 10/19/23 11:15 36.7 C 85 18 95/66 L 98 10/19/23 07:43 55 L 10/19/23 07:29 36.4 C L 59 L 18 117/72 97 10/19/23 02:35 36.4 C L 68 16 144/73 H 97 O2 Del Method 10/19/23 11:15 Room Air 10/19/23 07:43 10/19/23 07:29 Room Air 10/19/23 02:35 Room Air Laboratory Results Short CBC 10/19/23 Range/Units 06:34 WBC 5.96 (4.8-10.8) K/ul Hgb 13.9 L (14.0-18.0) g/dl Hct 40.8 L (42.0-52.0) % Plt Count 207 (130-400) K/uL BMP 10/19/23 06:34 Sodium 140 Potassium 3.9 Chloride 105 Carbon Dioxide 28 BUN 20 Creatinine 1.20 Glucose 106 H Calcium 9.1 Medications Administered Current Inpatient Medications Acetaminophen (Acetaminophen 325 Mg Tab) 650 mg PO Q6H PRN PRN Reason: Mild Pain (Scale 1, 2, 3) Stop: 11/16/23 21:35 Apixaban (Apixaban 5 Mg Tablet) 5 mg PO BID [facility] Stop: 11/16/23 21:35 Last Admin: 10/19/23 08:54 Dose: 5 mg Aspirin (Aspirin 81 Mg Chew) 81 mg PO DAILY [facility] Stop: 11/17/23 08:59 Last Admin: 10/19/23 08:54 Dose: 81 mg Hydrochlorothiazide (Hydrochlorothiazide 25 Mg Tab) 25 mg PO QAM [facility] Stop: 11/17/23 08:59 Last Admin: 10/19/23 08:54 Dose: 25 mg Hydromorphone HCl (Hydromorphone Inj 0.5 Mg/0.5 Ml Syr) 0.25 mg IV Q6H PRN PRN Reason: Severe Pain (Scale 7, 8, 9,10) Stop: 10/31/23 21:35 Daptomycin 375 mg/ Syringe 7.5 mls @ 3.75 mls/min IV Q24H [facility]; Protocol Stop: 10/24/23 21:59 Last Admin: 10/18/23 20:02 Dose: 3.75 mls/min Multivitamins (Multivitamin Tab) 1 tab PO DAILY [facility] Stop: 11/17/23 08:59 Last Admin: 10/19/23 08:54 Dose: 1 tab Ondansetron HCl (Ondansetron Inj 2 Mg/Ml 2 Ml Vial) 4 mg IV Q6H PRN PRN Reason: Nausea Stop: 11/16/23 21:35 Oxycodone HCl (Oxycodone Hcl Ir 5 Mg Tab (Immediate Release)) 5 mg PO Q6H PRN PRN Reason: Moderate Pain (Scale 4, 5, 6) Stop: 10/31/23 21:35 Polyethylene Glycol (Polyethylene (Miralax) 17 Gm Pack) 17 gm PO DAILY PRN PRN Reason: Constipation Stop: 11/16/23 21:35 Valsartan (Valsartan 80 Mg Tab) 160 mg PO QAM [facility] Stop: 11/17/23 08:59 Last Admin: 10/19/23 08:54 Dose: 160 mg
[2023-10-19] MEDS: POLYETHYLENE (MIRALAX) 17 GM PACK PO PRN (15:03)
--- NOTE | 2023-10-20 11:03 | Hospitalist Progress Note ---
Date of Service October 20, 2023 Assessment & Plan (1) Cellulitis of left leg: Plan Zion Vences is a 73y/o M with PMHx of HTN, dyslipidemia, mild cognitive impairment, history of DVT of LLE + PE [on Eliquis], BPH w/ LUTS and other problems listed below who presented to the ED for evaluation secondary to left lower leg swelling and erythema. Patient was seen in the ED on 09/10 for this same concern. At that time, the patient presented with some erythema and venous stasis changes of the left lower extremity. Ultrasound imaging of the left lower extremity at that time revealed evidence of DVT that was age-indeterminate. Patient has a history of DVT and PE in September 2019 that required anticoagulation at that time. Patient was ultimately placed on Eliquis at that time as well as a 10-day course of Keflex over suspicion for suspected superimposed infection over the area of venous stasis changes to the left lower extremity. Cellulitis of Left Leg No sepsis-CBC w/ no leukocytosis;Procalcitonin and lactate both negative. XR LT Tib/Fib reveals some soft tissue swelling; No acute osseous abnormality. MRI LLE-No osteomyelitis Received dose of IV Zosyn in ED; Will continue IV ABX coverage w/ Zosyn + Daptomycin. Wound cultures of LLE serous drainage ordered & pending - follow. Appreciate wound care input and recommendation He has been feeling better clinically Will continue current antibiotic until get the results of culture Possible discharge on oral Augmentin Zosyn has been discontinued and has been on daptomycin only from 10/19/2023 Awaiting sensitivity He has been feeling much better otherwise Likely discharge home this afternoon or tomorrow following the results of sensitivity Left leg wound is improved Denies any significant symptoms Will await for final sensitivity report before discharge LLE Venous Stasis Pt presented at [facility] earlier today for evaluation; Provider at [facility] reported to the patient that they could not palpate a pulse in his L foot - prompting arrival to ED. Pt w/ dusky appearance of L foot on presentation; However, arterial duplex US of LLE w/ NO occlusion or high-grade stenosis. Will advise for outpatient appointment with vascular surgery through the PCP Appreciate vascular surgery input and recommendation No evidence of arterial insufficiency in the legs Will continue to have outpatient follow-up No pain in the knee involving the foot Hypokalemia K+ 3.3 on admission; Ordered 10mEq IV KCl x 4 bags. Potassium level has been normalized Left Lower Extremity DVT H/O Pulmonary Embolism [September 2019] From [place] ED visit on 09/11/23: Ultrasound imaging of the left lower extremity at that time revealed evidence of DVT that was age-indeterminate. Patient was ultimately placed on Eliquis on 09/10; Will repeat duplex US of LLE to monitor DVT progression - Redemonstration of thrombus extending from the proximal superficial femoral vein to the popliteal vein. Continue Eliquis HTN BP stable on admission; Can continue [employer] valsartan-HCTZ. Continuous cardiac monitoring in place, monitor BP. Hyperlipidemia Cerebral Vascular Disease Pt on statin therapy [employer]; Will hold statin for now 2/2 daptomycin use. History of cerebral vascular disease per PCP records; Has been taking baby aspirin since 2020 - will continue. DVT Prophylaxis: On Eliquis [employer] - will continue. Code Status: FULL CODE PCP: Phillip Singleton MD Disposition: Admit to Med/Surg w/ Telemetry Likely discharge tomorrow Admission and Anticipated Discharge Date Admission Date: October 17, 2023 Subjective 10/18/2023 The patient was seen and examined in medical telemetry unit He has been complaining of pain in the left leg and left ankle for the last 2 to 3 weeks Was admitted with worsening cellulitis involving the left leg Denies any fever and or chills 10/19/2023 The patient was seen and examined in medical telemetry unit He has been stable and the left leg wound has been improving Denies any more pain in the knee or in the ankle He is worried about having arterial insufficiency and worsening symptoms of his legs 10/20/2023 The patient was seen and examined in medical telemetry unit He has been stable and the left leg has improved a lot No fever and or chills Sensitivity from the wounds of has not been back yet He wanted to stay and likely discharge tomorrow Review of Systems Review of Systems: All systems reviewed and are unremarkable except as noted below Physical Exam Physical Exam: Sitting at the edge of the bed without any acute distress Constitutional: + ill appearing and average body habitus Eyes: PERRL, conjunctivae normal, anicteric sclerae ENMT: external ear and nose normal, oropharynx normal Neck: trachea midline, no thyromegaly Respiratory: no respiratory distress Auscultation: lungs clear to auscultation bilaterally Cardiovascular: Rate/Rhythm: regular rate and regular rhythm; not tachycardic Heart Sounds: normal S1 and normal S2; no murmur Extremities: + edema (Trace edema bilaterally) Gastrointestinal (Abdomen): Inspection/Auscultation: normal bowel sounds; abdomen not distended Percussion/Palpation: abdomen soft; abdomen nontender Neurologic: normal touch/pain/proprioception and moves all extremities; no focal motor deficits Psychiatric: A+Ox3, euthymic affect Lymphatic: no cervical or axillary lymphadenopathy Results & Data Results & Data Vital Signs (Past 12 Hours) Vital Signs Temp Pulse Pulse Resp BP Pulse Ox O2 Del Method 10/20/23 07:40 36.6 C 61 16 124/75 96 Room Air 10/20/23 07:06 54 L 10/20/23 05:10 36.5 C 63 17 101/51 L 95 Room Air 10/20/23 00:00 64 10/19/23 23:15 36.7 C 62 18 116/71 96 Room Air Medications Administered Current Inpatient Medications Acetaminophen (Acetaminophen 325 Mg Tab) 650 mg PO Q6H PRN PRN Reason: Mild Pain (Scale 1, 2, 3) Stop: 11/16/23 21:35 Apixaban (Apixaban 5 Mg Tablet) 5 mg PO BID [facility] Stop: 11/16/23 21:35 Last Admin: 10/20/23 09:03 Dose: 5 mg Aspirin (Aspirin 81 Mg Chew) 81 mg PO DAILY [facility] Stop: 11/17/23 08:59 Last Admin: 10/20/23 09:04 Dose: 81 mg Hydrochlorothiazide (Hydrochlorothiazide 25 Mg Tab) 25 mg PO QAM [facility] Stop: 11/17/23 08:59 Last Admin: 10/20/23 09:04 Dose: 25 mg Hydromorphone HCl (Hydromorphone Inj 0.5 Mg/0.5 Ml Syr) 0.25 mg IV Q6H PRN PRN Reason: Severe Pain (Scale 7, 8, 9,10) Stop: 10/31/23 21:35 Daptomycin 375 mg/ Syringe 7.5 mls @ 3.75 mls/min IV Q24H [facility]; Protocol Stop: 10/24/23 21:59 Last Admin: 10/19/23 20:47 Dose: 3.75 mls/min Multivitamins (Multivitamin Tab) 1 tab PO DAILY [facility] Stop: 11/17/23 08:59 Last Admin: 10/20/23 09:04 Dose: 1 tab Ondansetron HCl (Ondansetron Inj 2 Mg/Ml 2 Ml Vial) 4 mg IV Q6H PRN PRN Reason: Nausea Stop: 11/16/23 21:35 Oxycodone HCl (Oxycodone Hcl Ir 5 Mg Tab (Immediate Release)) 5 mg PO Q6H PRN PRN Reason: Moderate Pain (Scale 4, 5, 6) Stop: 10/31/23 21:35 Polyethylene Glycol (Polyethylene (Miralax) 17 Gm Pack) 17 gm PO DAILY PRN PRN Reason: Constipation Stop: 11/16/23 21:35 Valsartan (Valsartan 80 Mg Tab) [facility] [place] Stop: 11/17/23 08:59 Last Admin: 10/20/23 09:04 Dose: 160 mg
--- NOTE | 2023-10-21 11:53 | Hospitalist Progress Note ---
Date of Service October 21, 2023 Assessment & Plan (1) Cellulitis of left leg: Plan Zion Vences is a 73y/o M with PMHx of HTN, dyslipidemia, mild cognitive impairment, history of DVT of LLE + PE [on Eliquis], BPH w/ LUTS and other problems listed below who presented to the ED for evaluation secondary to left lower leg swelling and erythema. Patient was seen in the ED on 09/10 for this same concern. At that time, the patient presented with some erythema and venous stasis changes of the left lower extremity. Ultrasound imaging of the left lower extremity at that time revealed evidence of DVT that was age-indeterminate. Patient has a history of DVT and PE in September 2019 that required anticoagulation at that time. Patient was ultimately placed on Eliquis at that time as well as a 10-day course of Keflex over suspicion for suspected superimposed infection over the area of venous stasis changes to the left lower extremity. Cellulitis of Left Leg No sepsis-CBC w/ no leukocytosis;Procalcitonin and lactate both negative. XR LT Tib/Fib reveals some soft tissue swelling; No acute osseous abnormality. MRI LLE-No osteomyelitis Received dose of IV Zosyn in ED; Will continue IV ABX coverage w/ Zosyn + Daptomycin. Wound cultures of LLE serous drainage ordered & pending - follow. Appreciate wound care input and recommendation He has been feeling better clinically Will continue current antibiotic until get the results of culture Possible discharge on oral Augmentin Zosyn has been discontinued and has been on daptomycin only from 10/19/2023 Awaiting sensitivity He has been feeling much better otherwise Likely discharge home this afternoon or tomorrow following the results of sensitivity Left leg wound is improved Denies any significant symptoms Wound culture showed Staph aureus MRSA resistant to oxacillin He will be given oral doxycycline to finish the course of 10 days of oral antibiotic Was advised to keep the wound clean and dry and apply dressing as advised and shown by the wound care nurse LLE Venous Stasis Pt presented at [facility] earlier today for evaluation; Provider at [facility] reported to the patient that they could not palpate a pulse in his L foot - prompting arrival to ED. Pt w/ dusky appearance of L foot on presentation; However, arterial duplex US of LLE w/ NO occlusion or high-grade stenosis. Will advise for outpatient appointment with vascular surgery through the PCP Appreciate vascular surgery input and recommendation No evidence of arterial insufficiency in the legs Will continue to have outpatient follow-up No pain in the knee involving the foot Hypokalemia K+ 3.3 on admission; Ordered 10mEq IV KCl x 4 bags. Potassium level has been normalized Left Lower Extremity DVT H/O Pulmonary Embolism [September 2019] From [place] ED visit on 09/11/23: Ultrasound imaging of the left lower extremity at that time revealed evidence of DVT that was age-indeterminate. Patient was ultimately placed on Eliquis on 09/10; Will repeat duplex US of LLE to monitor DVT progression - Redemonstration of thrombus extending from the proximal superficial femoral vein to the popliteal vein. 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 Continuous cardiac monitoring in place, monitor BP. Hyperlipidemia Cerebral Vascular Disease Pt on statin therapy [employer] FAMILY; Will hold statin for now 2/2 daptomycin use. History of cerebral vascular disease per PCP records; Has been taking baby aspirin since 2020 - will continue. 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 Code Status: FULL CODE PCP: Phillip Singleton MD Disposition: Admit to Med/Surg w/ Telemetry Will be discharged this afternoon Admission and Anticipated Discharge Date Admission Date: October 17, 2023 Subjective 10/18/2023 The patient was seen and examined in medical telemetry unit He has been complaining of pain in the left leg and left ankle for the last 2 to 3 weeks Was admitted with worsening cellulitis involving the left leg Denies any fever and or chills 10/19/2023 The patient was seen and examined in medical telemetry unit He has been stable and the left leg wound has been improving Denies any more pain in the knee or in the ankle He is worried about having arterial insufficiency and worsening symptoms of his legs 10/20/2023 The patient was seen and examined in medical telemetry unit He has been stable and the left leg has improved a lot No fever and or chills Sensitivity from the wounds of has not been back yet He wanted to stay and likely discharge tomorrow 10/21/2023 The patient was seen and examined in medical telemetry unit He has been doing much better and the leg wound has improved a lot Denies any fever and or chills and has been ambulating in the hallway without any difficulties He will be discharged home this afternoon on oral doxycycline Review of Systems Review of Systems: All systems reviewed and are unremarkable except as noted below Physical Exam Physical Exam: Sitting at the edge of the bed without any acute distress Constitutional: + ill appearing and average body habitus Eyes: PERRL, conjunctivae normal, anicteric sclerae ENMT: external ear and nose normal, oropharynx normal Neck: trachea midline, no thyromegaly Respiratory: no respiratory distress Auscultation: lungs clear to auscultation bilaterally Cardiovascular: Rate/Rhythm: regular rate and regular rhythm; not tachycardic Heart Sounds: normal S1 and normal S2; no murmur Extremities: + edema (Trace edema bilaterally) Gastrointestinal (Abdomen): Inspection/Auscultation: normal bowel sounds; abdomen not distended Percussion/Palpation: abdomen soft; abdomen nontender Neurologic: normal touch/pain/proprioception and moves all extremities; no focal motor deficits Psychiatric: A+Ox3, euthymic affect Lymphatic: no cervical or axillary lymphadenopathy Results & Data Results & Data Vital Signs (Past 12 Hours) Vital Signs Temp Pulse Pulse Resp BP BP Pulse Ox 10/21/23 11:18 36.6 C 62 18 116/69 99 10/21/23 07:39 36.7 C 60 18 121/71 97 10/21/23 07:14 56 L 10/21/23 03:25 36.4 C L 68 18 124/64 96 10/21/23 00:23 69 10/21/23 00:03 36.7 C 71 18 127/72 97 O2 Del Method 10/21/23 11:18 Room Air 10/21/23 07:39 Room Air 10/21/23 07:14 10/21/23 03:25 Room Air 10/21/23 00:23 10/21/23 00:03 Room Air Medications Administered Current Inpatient Medications Acetaminophen (Acetaminophen 325 Mg Tab) 650 mg PO Q6H PRN PRN Reason: Mild Pain (Scale 1, 2, 3) Stop: 11/16/23 21:35 Apixaban (Apixaban 5 Mg Tablet) 5 mg PO BID [facility] Stop: 11/16/23 21:35 Last Admin: 10/21/23 08:38 Dose: 5 mg Aspirin (Aspirin 81 Mg Chew) 81 mg PO DAILY [facility] Stop: 11/17/23 08:59 Last Admin: 10/21/23 08:39 Dose: 81 mg Hydrochlorothiazide (Hydrochlorothiazide 25 Mg Tab) 25 mg PO QAM [facility] Stop: 11/17/23 08:59 Last Admin: 10/21/23 08:38 Dose: 25 mg Hydromorphone HCl (Hydromorphone Inj 0.5 Mg/0.5 Ml Syr) 0.25 mg IV Q6H PRN PRN Reason: Severe Pain (Scale 7, 8, 9,10) Stop: 10/31/23 21:35 Daptomycin 375 mg/ Syringe 7.5 mls @ 3.75 mls/min IV Q24H [facility]; Protocol Stop: 10/24/23 21:59 Last Admin: 10/20/23 20:14 Dose: 3.75 mls/min Multivitamins (Multivitamin Tab) 1 tab PO DAILY [facility] Stop: 11/17/23 08:59 Last Admin: 10/21/23 08:39 Dose: 1 tab Ondansetron HCl (Ondansetron Inj 2 Mg/Ml 2 Ml Vial) 4 mg IV Q6H PRN PRN Reason: Nausea Stop: 11/16/23 21:35 Oxycodone HCl (Oxycodone Hcl Ir 5 Mg Tab (Immediate Release)) 5 mg PO Q6H PRN PRN Reason: Moderate Pain (Scale 4, 5, 6) Stop: 10/31/23 21:35 Polyethylene Glycol (Polyethylene (Miralax) 17 Gm Pack) 17 gm PO DAILY PRN PRN Reason: Constipation Stop: 11/16/23 21:35 Valsartan (Valsartan 80 Mg Tab) [facility] [place] Stop: 11/17/23 08:59 Last Admin: 10/21/23 08:39 Dose: 160 mg
--- NOTE | 2023-10-22 08:41 | Discharge Summary ---
Date of Service October 22, 2023 Admission HPI Per Admitting Provider Zion Vences is a 73y/o M with PMHx of HTN, dyslipidemia, mild cognitive impairment, history of DVT of LLE + PE [on Eliquis], BPH w/ LUTS and other problems listed below who presented to the ED for evaluation secondary to left lower leg swelling and erythema. History obtained from patient and associated chart review. Patient was seen in the ED on 09/10 for this same concern. At that time, the patient presented with some erythema and venous stasis changes of the left lower extremity. Ultrasound imaging of the left lower extremity at that time revealed evidence of DVT that was age-indeterminate. Patient has a history of DVT and PE in September 2019 that required anticoagulation at that time. Patient was ultimately placed on Eliquis at that time as well as a 10-day course of Keflex over suspicion for suspected superimposed infection over the area of venous stasis changes to the left lower extremity. Patient was hemodynamically stable, saturating well on room air and denied any chest pain or shortness of breath at time of discharge from the ED following that visit. Patient reports progressive worsening of his left lower leg erythema and swelling since being sent home from the ED on 09/10. Denies any fevers, chills or body aches. Does mention that he's been experiencing some oozing from the left lower leg for the past few weeks - clear to yellowish in appearance. He presented at [facility] earlier today for evaluation. According to Dr. Erickson, the provider at [facility] reported to the patient that they could not palpate a pulse in his leg and they subsequently referred him to the emergency department. Patient denies any significant pain to the foot and any numbness/tingling in his feet. He was prescribed doxycycline by the outpatient provider at [facility], but reports he has not yet started it. He mentions that he was on antibiotics last month, but nothing since. Patient states that he has a history of a DVT in the left lower extremity and is on Eliquis - denies any missed doses. Admission Exam Per Admitting Provider Physical Exam: General: WD/WN, vitals as above, NAD, sitting up in bed, pleasant, conversing appropriately. A+Ox3, euthymic affect. HEENT: Normocephalic, atraumatic. PERRL, conjunctivae normal, anicteric sclerae. External ear and nose normal, oropharynx normal. Respiratory: Normal respiratory effort, lungs clear to auscultation, no wheeze, rales, rhonchi. No accessory muscle use. Cardiovascular: Regular rate, rhythm, no murmur, normal peripheral pulses, no BLE edema. Vessels: No JVD. Abdomen/GI: Normal bowel sounds, soft, nontender, no hepatosplenomegaly. Extremities/Musculoskeletal: Circumferential erythema of LLE, open wounds draining serous fluid. Neurologic: PERRL, EOMI, accommodation nl, no face palsy, no dysarthria, sensation intact to light touch in LLE and L foot. Skin: Mottling of L foot, somewhat dusky in appearance. L foot however warm to touch. Venous stasis changes of b/l LE noted. Principal Diagnosis Left leg cellulitis, left lower leg venous stasis, DVT involving left lower leg, hypertension, CVD Discharge Exam Sitting at the edge of the bed without any acute distress Constitutional + ill appearing and average body habitus Eyes PERRL, conjunctivae normal, anicteric sclerae ENMT external ear and nose normal, oropharynx normal Neck trachea midline, no thyromegaly Respiratory no respiratory distress Auscultation: lungs clear to auscultation bilaterally Cardiovascular Rate/Rhythm: regular rate and regular rhythm; not tachycardic Heart Sounds: normal S1 and normal S2; no murmur Extremities: + edema (Trace edema bilaterally) Gastrointestinal (Abdomen) Inspection/Auscultation: normal bowel sounds; abdomen not distended Percussion/Palpation: abdomen soft; abdomen nontender Neurologic normal touch/pain/proprioception and moves all extremities; no focal motor deficits Psychiatric A+Ox3, euthymic affect Lymphatic no cervical or axillary lymphadenopathy Discharge Data Allergies Allergy/AdvReac Type Severity Reaction Status Date / Time No Known Allergies Allergy Unverified 10/17/23 17:17 Consultations 10/17/23 17:05 ED Decision to Admit Stat 10/19/23 11:56 Consult Vascular Surgery Routine Ordered Studies 10/17/23 15:33 US doppler leg [US arterial duplex LE LT] Stat 10/17/23 17:53 MRI Leg [MR lower leg LT wo con] Stat 10/17/23 17:56 US venous duplex leg [US venous doppler LE LT] Stat Hospital Course (1) Cellulitis of left leg: Plan Zion Vences is a 73y/o M with PMHx of HTN, dyslipidemia, mild cognitive impairment, history of DVT of LLE + PE [on Eliquis], BPH w/ LUTS and other problems listed below who presented to the ED for evaluation secondary to left lower leg swelling and erythema. Patient was seen in the ED on 09/10 for this same concern. At that time, the patient presented with some erythema and venous stasis changes of the left lower extremity. Ultrasound imaging of the left lower extremity at that time revealed evidence of DVT that was age-indeterminate. Patient has a history of DVT and PE in September 2019 that required anticoagulation at that time. Patient was ultimately placed on Eliquis at that time as well as a 10-day course of Keflex over suspicion for suspected superimposed infection over the area of venous stasis changes to the left lower extremity. Cellulitis of Left Leg No sepsis-CBC w/ no leukocytosis;Procalcitonin and lactate both negative. XR LT Tib/Fib reveals some soft tissue swelling; No acute osseous abnormality. MRI LLE-No osteomyelitis Received dose of IV Zosyn in ED; Will continue IV ABX coverage w/ Zosyn + Daptomycin. Wound cultures of LLE serous drainage ordered & pending - follow. Appreciate wound care input and recommendation He has been feeling better clinically Will continue current antibiotic until get the results of culture Possible discharge on oral Augmentin Zosyn has been discontinued and has been on daptomycin only from 10/19/2023 Awaiting sensitivity He has been feeling much better otherwise Likely discharge home this afternoon or tomorrow following the results of sensitivity Left leg wound is improved Denies any significant symptoms Wound culture showed Staph aureus MRSA resistant to oxacillin He will be given oral doxycycline to finish the course of 10 days of oral antibiotic Was advised to keep the wound clean and dry and apply dressing as advised and shown by the wound care nurse LLE Venous Stasis Pt presented at [facility] earlier today for evaluation; Provider at [facility] reported to the patient that they could not palpate a pulse in his L foot - prompting arrival to ED. Pt w/ dusky appearance of L foot on presentation; However, arterial duplex US of LLE w/ NO occlusion or high-grade stenosis. Will advise for outpatient appointment with vascular surgery through the PCP Appreciate vascular surgery input and recommendation No evidence of arterial insufficiency in the legs Will continue to have outpatient follow-up No pain in the knee involving the foot Hypokalemia K+ 3.3 on admission; Ordered 10mEq IV KCl x 4 bags. Potassium level has been normalized Left Lower Extremity DVT H/O Pulmonary Embolism [September 2019] From [facility] ED visit on 09/11/23: Ultrasound imaging of the left lower extremity at that time revealed evidence of DVT that was age-indeterminate. Patient was ultimately placed on Eliquis on 09/10; Will repeat duplex US of LLE to monitor DVT progression - Redemonstration of thrombus extending from the proximal superficial femoral vein to the popliteal vein. Continue Eliquis-avoid any NSAIDs or aspirin while on Eliquis HTN BP stable on admission; Can continue [employer] valsartan-HCTZ. Continuous cardiac monitoring in place, monitor BP. Hyperlipidemia Cerebral Vascular Disease Pt on statin therapy [employer]; Will hold statin for now 2/2 daptomycin use. History of cerebral vascular disease per PCP records; Has been taking baby aspirin since 2020 - will continue. DVT Prophylaxis: On Eliquis [employer] - will continue. Code Status: FULL CODE PCP: Phillip Singleton MD Disposition: Admit to Med/Surg w/ Telemetry Will be discharged this afternoon Total Time Total Time Spent Total Time Spent (In Minutes): 35 minutes Discharge Plan Discharge Items Patient Disposition: Home - Self-Care Reason For Visit: LEFT LEG CELLULITIS Discharge Diagnosis: Left leg cellulitis, left lower leg venous stasis, DVT involving left lower leg, hypertension, CVD Condition on Discharge: Good Activity: Resume your previous activity Non-emergency contact: Primary Care Provider Call non-emergency contact if: you have any medication questions and your symptoms worsen Follow-up/Referrals: Phillip Singleton MD [Primary Care Provider] - 10/23/23 2:00 pm (Your appointment is with Dr. Carrillo on 10/23/2023 at 2 PM ) Diet: Regular Addtl Attending Provider Instructions: Please take precautions to avoid falls Finish the course of antibiotic Dress your wound as advised by the wound care nurse Keep the wound clean and dry Please have follow-up appointments with your healthcare providers Do not use any aspirin and/or other NSAIDs like ibuprofen, Motrin, Advil etc. you can try Tylenol for any pain Pending Studies at Discharge: No Stand-Alone Forms: My [facility] [employer], Smoking Cessation Medications and DC Order Prescriptions: Continued doxycycline hyclate 100 mg capsule 100 mg PO BID 10 Days Qty: 20 0RF Rx Instructions: did not start acetaminophen [Tylenol Extra Strength] 500 mg Tablet 1,000 mg PO Q6H PRN (Reason: Pain) aspirin 81 mg tablet,chewable 81 mg PO DAILY Qty: 14 0RF atorvastatin 20 mg tablet 20 mg PO QAM valsartan-hydrochlorothiazide 160-25 mg tablet 1 tab PO QAM Eliquis 5 mg tablet 5 mg PO BID multivitamin Tablet 1 tab PO DAILY Discharge Orders: Discharge Order (Routine); Ordered 10/21/23 Ordered By: Gagandeep Paz Admission Data Admit Date/Time: 10/17/23 17:26 Attending Provider: Gagandeep Paz Admit Provider: Ketty Mao Primary Care Provider: Phillip Singleton Other Providers: Ketty Mao; Carlton Hemphill Other Interventions: Discharge Summary Assessment (RN) Last Done: 10/21/23 12:12
== END 2023-10-21 13:29 | disposition home or self-care (01) | DRG 603 ==
LOC: ED 14:51 → SUATTDRO 17:26 → EDINP 17:26 → 2N 21:35